=== PATIENT | female | born 1990 | race Caucasian/White ===

== ENCOUNTER 2016-04-09 19:36 | Emergency (ER) | payer OTHER ==
[2016-04-09] MEDS ORDERED: ACETAMINOPHEN 325 MG TABLET (FP) ONE (20:09)
[2016-04-09] MEDS ORDERED: ACETAMINOPHEN 500 MG TABLET (FP) PO ONE (20:12)
[2016-04-09 20:31] VITALS: BP 150/72; PULSE 94; TEMP 98; BMI 33.2
--- NOTE | 2016-04-09 21:20 | PDOC ---
History of Present Illness - History of Present Illness Initial Comments: 04/09/16 22:26 Patient is a 26 year old female with significant medical hx of hydradenitis who is presenting to the ED with tenderness beneath the left axilla for two days. Patient states that her last abscess occurred last year and she had it drained. She does not wear deodorant. The patient denies fever, chills, other past medical history or surgeries. <Atiya Pollock - Last Filed: 04/09/16 22:26> <More Bautista - Last Filed: 04/10/16 01:40> - General Chief Complaint: Wound Stated Complaint: ABSCESS BOIL Time Seen by Provider: 04/09/16 20:31 Past History <Atiya Pollock - Last Filed: 04/09/16 22:26> - Past Medical History Anemia: No Asthma: No Cancer: No Cardiac Disorders: No CVA: No COPD: No CHF: No Dementia: No Diabetes: No GI Disorders: No Disorders: No HTN: No Hypercholesterolemia: No Liver Disease: No Suicide Attempt (Hx): No Seizures: No Thyroid Disease: No - Surgical History Abdominal Surgery: Yes (2 c-sections) - Reproductive History (#): 2 Para: 1 - Psycho/Social/Smoking Cessation Hx Anxiety: No Suicidal Ideation: No Smoking Status: No Smoking History: Never smoked Have you smoked in the past 12 months: No Number of Cigarettes Smoked Daily: 0 Hx Alcohol Use: No Drug/Substance Use Hx: No Substance Use Type: None Hx Substance Use Treatment: No <More Bautista - Last Filed: 04/10/16 01:40> - Past Medical History Allergies/Adverse Reactions: Allergies Allergy/AdvReac Type Severity Reaction Status Date / Time No Known Allergies Allergy Verified 04/09/16 19:50 Home Medications: Ambulatory Orders Ibuprofen [Motrin -] 600 mg PO TID PRN #21 tablet 04/09/16 Sulfamethoxazole/Trimethoprim [Bactrim Ds -] 1 tab PO BID #14 tablet 04/09/16 Review of Systems - Review of Systems Comments:: 04/09/16 22:31 CONSTITUTIONAL: Absent: fever, chills, diaphoresis, generalized weakness, malaise, loss of appetite HEENT: Absent: rhinorrhea, nasal congestion, throat pain, throat swelling, difficulty swallowing, mouth swelling, ear pain, eye pain, visual changes CARDIOVASCULAR: Absent: chest pain, syncope, palpitations, irregular heart rate, lightheadedness , peripheral edema RESPIRATORY: Absent: cough, shortness of breath, dyspnea with exertion, orthopnea, wheezing, stridor, hemoptysis GASTROINTESTINAL: Absent: abdominal pain, abdominal distension, nausea, vomiting, diarrhea, constipation, melena, hematochezia GENITOURINARY: Absent: dysuria, frequency, urgency, hesitancy, hematuria, flank pain, genital pain MUSCULOSKELETAL: Absent: myalgia, arthralgia, joint swelling SKIN: Present: pain beneath left axilla Absent: rash, itching, pallor HEMATOLOGIC/IMMUNOLOGIC: Absent: easy bleeding, easy bruising, lymphadenopathy, frequent infections ENDOCRINE: Absent: unexplained weight gain, unexplained weight loss, heat intolerance, cold intolerance NEUROLOGIC: Absent: headache, focal weakness or paresthesia, dizziness, unsteady gait, seizure, mental status changes, bladder or bowel incontinence. PSYCHIATRIC: Absent: anxiety, depression, suicidal or homicidal ideation, hallucinations <Atiya Pollock - Last Filed: 04/09/16 22:26> *Physical Exam - Vital Signs Last Vital Signs Temp Pulse Resp BP Pulse Ox 98 F 94 H 16 150/72 98 04/09/16 19:51 04/09/16 19:51 04/09/16 19:51 04/09/16 19:51 04/09/16 19:51 - Physical Exam Comments: 04/09/16 22:32 GENERAL: Well developed, well nourished. Awake and alert. No acute distress. HEENT: Normocephalic, atraumatic. PERRLA, EOMI. No conjunctival pallor. Sclera are non- icteric. Moist mucous membranes. Oropharynx is clear. NECK: Supple. Full ROM. No JVD. Carotid pulses 2+ and symmetric, without bruits. No thyromegaly. No lymphadenopathy. CARDIOVASCULAR: Regular rate and rhythm. No murmurs, rubs, or gallops. Distal pulses are 2+ and symmetric. PULMONARY: No evidence of respiratory distress. Lungs clear to auscultation bilaterally. No wheezing, rales or rhonchi. ABDOMINAL: Soft. Non-tender. Non-distended. No rebound or guarding. No organomegaly. Normoactive bowel sounds. MUSCULOSKELETAL: Normal range of motion at all joints. No bony deformities or tenderness. No CVA tenderness. EXTREMITIES: No cyanosis. No clubbing. No edema. No calf tenderness. SKIN: No obvious abscess. Flushy area of 1 cm with exquisite tenderness to left axilla , no fluctuance, no obvious swelling, no redundant erythema, no induration, no streaking. Warm and dry. Normal capillary refill. No rashes. No jaundice. NEUROLOGICAL: Alert, awake, appropriate. Cranial nerves 2-12 intact. Normal speech. Gait is normal without ataxia. PSYCHIATRIC: Cooperative. Good eye contact. Appropriate mood and affect. <Atiya Pollock - Last Filed: 04/09/16 22:26> - Vital Signs Last Vital Signs Temp Pulse Resp BP Pulse Ox 98 F 94 H 16 150/72 98 04/09/16 19:51 04/09/16 19:51 04/09/16 19:51 04/09/16 19:51 04/09/16 19:51 <More Bautista - Last Filed: 04/10/16 01:40> ED Treatment Course - ADDITIONAL ORDERS Additional order review: Laboratory Results 04/09/16 19:57 POC Glucometer [id number] 04/09/16 19:57 POC Glucometer [id number] - Medications Given in the ED: ED Medications Discontinued Medications Generic Name Dose Route Start Last Admin Trade Name Freq PRN Reason Stop Dose Admin Acetaminophen 975 mg 04/09/16 20:12 04/09/16 20:12 Tylenol - PO 04/09/16 20:13 975 mg NOW ONE Administration Trimethoprim/Sulfamethoxazole 1 each 04/09/16 21:21 04/09/16 21:40 Bactrim Ds - PO 04/09/16 21:22 Not Given ONCE ONE <MarisAtiya - Last Filed: 04/09/16 22:26> - ADDITIONAL ORDERS Additional order review: Laboratory Results 04/09/16 19:57 POC Glucometer [id number] 04/09/16 19:57 POC Glucometer [id number] - Medications Given in the ED: ED Medications Discontinued Medications Generic Name Dose Route Start Last Admin Trade Name Freq PRN Reason Stop Dose Admin Acetaminophen 975 mg 04/09/16 20:12 04/09/16 20:12 Tylenol - PO 04/09/16 20:13 975 mg NOW ONE Administration <More Bautista - Last Filed: 04/10/16 01:40> Medical Decision Making - Medical Decision Making 04/10/16 01:37 the pt had a history of hydradenitis and strted to have a painful area under left axilla -on exam there is no area of fluctuance but a very small area of tenderness -I explained that at this time there was no abscess suitable for an incision and drainage -she was placed on antibiotics ad told to return if an area of fluctuance develops or if her pain increases <More Bautista - Last Filed: 04/10/16 01:40> *DC/Admit/Observation/Transfer - Attestations Scribe Attestion: 04/09/16 22:36 Documentation prepared by Atiya Pollock, acting as medical collections for More Bautista MD. 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
[2016-04-09] MEDS ORDERED: SULFAMETHOXAZOLE/TRIMETHOPRIM 800MG/160MG D.S. TABLET PO ONE (21:21)
== END 2016-04-09 22:13 | disposition home or self-care (01) ==
LOC: JER 19:36
DX: L02.412 Cutaneous abscess of left axilla (principal)
CPT/HCPCS: 99281-25

== ENCOUNTER 2016-06-29 16:08 | Emergency (ER) | payer OTHER ==
[2016-06-29 16:18] VITALS: BP 101/62; PULSE 75; TEMP 98.4; BMI 37.8
--- NOTE | 2016-06-29 16:37 | PDOC ---
History of Present Illness - General History Source: Patient Exam Limitations: No Limitations - History of Present Illness Initial Comments: 06/29/16 17:15 The patient is a 26 year old female (), with no significant past medical history, who presents to the emergency department complaining of abdominal pain , nausea, and vomiting for approximately 2 days. The patient reports her last menstrual period was on 06/21/16. However, she reports she experienced spotting as opposed to her typical menstrual bleeding. The patient reports taking an at home test, which was negative. However, she reports she is aware that these are usually ineffective, thus she presents to the emergency department for evaluation of her symptoms. The patient reports she was recently on antibiotics for an abscess in her left upper extremity. However, she reports she has stopped taking the antibiotic out of concern that she may be . The patient denies any diarrhea or constipation. She denies any dysuria, hematuria, frequency, or urgency. She denies any fever, chills, cough, headache , or dizziness. Allergies: None reported. Past Surgical History: (X2) Social History: Non-smoker. Denies alcohol or drug use. PCP: Dr. Erickson <Edward Saenz - Last Filed: 06/29/16 17:15> <Christi Phelps - Last Filed: 06/29/16 19:44> <Julia Reynoso - Last Filed: 07/02/16 07:50> - General Chief Complaint: Pain, Acute Stated Complaint: ABS PAIN Time Seen by Provider: 06/29/16 16:35 Past History <Edward Saenz - Last Filed: 06/29/16 17:15> <Christi Phelps - Last Filed: 06/29/16 19:44> - Past Medical History Anemia: No Asthma: No Cancer: No Cardiac Disorders: No CVA: No COPD: No CHF: No Dementia: No Diabetes: No GI Disorders: No Disorders: No HTN: No Hypercholesterolemia: No Liver Disease: No Suicide Attempt (Hx): No Seizures: No Thyroid Disease: No - Surgical History Abdominal Surgery: Yes (2 c-sections) - Reproductive History (#): 2 Para: 1 - Psycho/Social/Smoking Cessation Hx Anxiety: No Suicidal Ideation: No Smoking Status: No Smoking History: Never smoked Have you smoked in the past 12 months: No Number of Cigarettes Smoked Daily: 0 Information on smoking cessation initiated: No Hx Alcohol Use: No Drug/Substance Use Hx: No Substance Use Type: None Hx Substance Use Treatment: No <Julia Reynoso - Last Filed: 07/02/16 07:50> - Past Medical History Allergies/Adverse Reactions: Allergies Allergy/AdvReac Type Severity Reaction Status Date / Time No Known Allergies Allergy Verified 06/29/16 18:17 Home Medications: Ambulatory Orders NK [No Known Home Medication] 06/29/16 Review of Systems - Review of Systems Able to Perform ROS?: Yes Comments:: 06/29/16 17:16 GENERAL/CONSTITUTIONAL: No fever or chills. No weakness. HEAD, EYES, EARS, NOSE AND THROAT: No change in vision. No ear pain or discharge. No sore throat. CARDIOVASCULAR: No chest pain or shortness of breath. RESPIRATORY: No cough, wheezing, or hemoptysis. GASTROINTESTINAL: Yes: +abdominal pain, +nausea, +vomiting. No constipation. GENITOURINARY: No dysuria, frequency, or change in urination. MUSCULOSKELETAL: No joint or muscle swelling or pain. No neck or back pain. SKIN: No rash NEUROLOGIC: No headache, vertigo, loss of consciousness, or change in strength/ sensation. ENDOCRINE: No increased thirst. No abnormal weight change. HEMATOLOGIC/LYMPHATIC: No anemia, easy bleeding, or history of blood clots. ALLERGIC/IMMUNOLOGIC: No hives or skin allergy. <Edward Saenz - Last Filed: 06/29/16 17:15> *Physical Exam - Vital Signs Last Vital Signs Temp Pulse Resp BP Pulse Ox 98.4 F 75 20 101/62 99 06/29/16 16:13 06/29/16 16:13 06/29/16 16:13 06/29/16 16:13 06/29/16 16:13 - Physical Exam Comments: 06/29/16 17:16 GENERAL: Awake, alert, and fully oriented, in no acute distress HEAD: No signs of trauma EYES: PERRLA, EOMI, sclera anicteric, conjunctiva clear ENT: Auricles normal inspection, hearing grossly normal, nares patent, oropharynx clear without exudates. Moist mucosa NECK: Normal ROM, supple, no lymphadenopathy, JVD, or masses LUNGS: Breath sounds equal, clear to auscultation bilaterally. No wheezes, and no crackles HEART: Regular rate and rhythm, normal S1 and S2, no murmurs, rubs or gallops ABDOMEN: Soft, nontender, normoactive bowel sounds. No guarding, no rebound. No masses EXTREMITIES: Normal range of motion, no edema. No clubbing or cyanosis. No cords, erythema, or tenderness NEUROLOGICAL: Cranial nerves II through XII grossly intact. Normal speech, normal gait SKIN: Warm, Dry, normal turgor, no rashes or lesions noted. <Edward Saenz - Last Filed: 06/29/16 17:15> - Vital Signs Last Vital Signs Temp Pulse Resp BP Pulse Ox 98.4 F 75 20 101/62 99 06/29/16 16:13 06/29/16 16:13 06/29/16 16:13 06/29/16 16:13 06/29/16 16:13 <Christi Phelps - Last Filed: 06/29/16 19:44> - Vital Signs Last Vital Signs Temp Pulse Resp BP Pulse Ox 98.4 F 75 20 101/62 99 06/29/16 16:13 06/29/16 16:13 06/29/16 16:13 06/29/16 16:13 06/29/16 16:13 <Julia Reynoso - Last Filed: 07/02/16 07:50> ED Treatment Course - LABORATORY CBC & Chemistry Diagram: 06/29/16 17:05 06/29/16 17:05 - ADDITIONAL ORDERS Additional order review: Laboratory Results 06/29/16 06/29/16 06/29/16 17:05 17:05 17:05 Sodium 139 Potassium 4.4 Chloride 102 Carbon Dioxide 29 D Anion Gap 8 BUN 9 D Creatinine 0.7 Creat Clearance w eGFR > 60 Random Glucose 76 Calcium 9.4 Total Bilirubin 0.3 D AST 19 D ALT 36 D Alkaline Phosphatase 66 Total Protein 7.6 Albumin 4.1 Lipase 151 Serum , Qual Negative Urine Color Straw Urine Appearance Clear Urine pH 8.0 D Urine Protein Negative Urine Glucose (UA) Negative Urine Ketones Negative Urine Blood Negative Urine Nitrite Negative Urine Bilirubin Negative Urine Urobilinogen Negative Ur Leukocyte Esterase 2+ H Urine RBC 2 Urine WBC 8 Ur Epithelial Cells Few Urine HCG, Qual Negative 06/29/16 17:05 RBC 4.64 MCV 88.3 MCHC 33.0 RDW 14.4 MPV 8.6 Neutrophils % 57.4 Lymphocytes % 34.5 Monocytes % 6.1 Eosinophils % 1.7 Basophils % 0.3 - Medications Given in the ED: ED Medications Discontinued Medications Generic Name Dose Route Start Last Admin Trade Name Nano PRN Reason Stop Dose Admin Sodium Chloride 1,000 mls @ 1,000 mls/hr 06/29/16 17:01 06/29/16 18:11 Normal Saline - IV 06/29/16 18:00 Not Given ASDIR STA Ondansetron HCl 4 mg 06/29/16 17:01 06/29/16 18:11 Zofran Injection IVPUSH 06/29/16 17:02 Not Given ONCE ONE <Christi Phelps - Last Filed: 06/29/16 19:44> - LABORATORY CBC & Chemistry Diagram: 06/29/16 17:05 06/29/16 17:05 <Julia Reynoso - Last Filed: 07/02/16 07:50> Medical Decision Making - Medical Decision Making Pt endorsed to Dr. Phelps at 7pm shift change. Awaiting serum preg. She was difficult for IV access, butterflied for labs. She has been tolerating PO in the ED, do <Julia Reynoso - Last Filed: 07/02/16 07:50> *DC/Admit/Observation/Transfer - Attestations Scribe Attestion: 06/29/16 17:17 Documentation prepared by Edward Saenz, acting as emergency medical tech for Julia Reynoso MD. <Edward Saenz - Last Filed: 06/29/16 17:15> - Discharge Dispostion Admit: No <Christi Phelps - Last Filed: 06/29/16 19:44> <Julia Reynoso - Last Filed: 07/02/16 07:50> Diagnosis at time of Disposition: Abdominal pain - Discharge Dispostion Disposition: HOME Condition at time of disposition: Stable - Referrals Referrals: Maisha Erickson MD [Primary Care Provider] - - Patient Instructions Printed Discharge Instructions: DI for Abdominal Pain-Adult
[2016-06-29] MEDS ORDERED: SODIUM CHLORIDE 1,000 ML IV STA (17:01)
[2016-06-29] MEDS ORDERED: ONDANSETRON 4 MG/2 ML VIAL IVPUSH ONE (17:01)
[2016-06-29] MEDS ORDERED: ONDANSETRON 4 MG/2 ML VIAL ONE (17:14)
[2016-06-29 17:34] LABS: URINE APPEARANCE CLEAR; URINE BILIRUBIN NEGATIVE (NEGATIVE); URINE BLOOD NEGATIVE (NEGATIVE); URINE COLOR STRAW; URINE GLUCOSE (UA) NEGATIVE (NEGATIVE); URINE KETONE NEGATIVE (NEGATIVE); URINE NITRITE NEGATIVE (NEGATIVE); URINE PROTEIN NEGATIVE (NEGATIVE); URINE UROBILINOGEN NEGATIVE E.U./dl (0.2-1.0)
[2016-06-29 17:37] LABS: URINE LEUK ESTERASE 2+ (NEGATIVE)
[2016-06-29 17:38] LABS: URINE RBC 2 /hpf (0-3); URINE WBC 8 /hpf (3-5)
[2016-06-29 18:58] LABS: BASOPHIL 0.3 % (0-2.0); EOSINOPHIL 1.7 % (0-4.5); MCH 29.1 pg (25.7-33.7); MEAN CELL VOLUME 88.3 fl (80-96); MEAN PLT VOLUME 8.6 fl (7.5-11.1); NEUTROPHILS 57.4 % (42.8-82.8); PLATELET COUNT 385 K/MM3 (134-434); RDW 14.4 % (11.6-15.6); WHITE BLOOD COUNT 8.7 K/mm3 (4.0-10.0)
[2016-06-29 19:20] LABS: ALBUMIN 4.1 g/dl (3.4-5.0); ALK PHOS 66 U/L (45-117); ANION GAP 8 (8-16); BILIRUBIN,TOTAL 0.3 mg/dL (0.2-1.0); CALCIUM 9.4 mg/dL (8.5-10.1); CO2 29 mmol/L (21-32); CREATININE 0.7 mg/dL (0.55-1.02); GLUCOSE,RANDOM 76 mg/dL (74-106); SGOT/AST 19 U/L (15-37); SGPT/ALT 36 U/L (12-78); TOT PROT 7.6 g/dl (6.4-8.2)
== END 2016-06-29 19:57 | disposition home or self-care (01) ==
LOC: JER 16:08
DX: R10.84 Generalized abdominal pain (principal)
CPT/HCPCS: 36415; 80053; 81003; 81015; 83690; 84703; 85025; 99282-25

== ENCOUNTER 2016-09-26 02:36 | Emergency (ER) | payer OTHER ==
--- NOTE | 2016-09-26 03:01 | PDOC ---
History of Present Illness - General Chief Complaint: Pain Stated Complaint: SHOULDER/CHEST PAIN Time Seen by Provider: 09/26/16 03:00 Past History - Past Medical History Allergies/Adverse Reactions: Allergies Allergy/AdvReac Type Severity Reaction Status Date / Time No Known Allergies Allergy Verified 06/29/16 18:17 Home Medications: Ambulatory Orders NK [No Known Home Medication] 06/29/16 Anemia: No Asthma: No Cancer: No Cardiac Disorders: No CVA: No COPD: No CHF: No Dementia: No Diabetes: No GI Disorders: No Disorders: No HTN: No Hypercholesterolemia: No Liver Disease: No Suicide Attempt (Hx): No Seizures: No Thyroid Disease: No - Surgical History Abdominal Surgery: Yes (2 c-sections) - Reproductive History (#): 2 Para: 1 - Psycho/Social/Smoking Cessation Hx Anxiety: No Suicidal Ideation: No Smoking Status: No Smoking History: Never smoked Have you smoked in the past 12 months: No Number of Cigarettes Smoked Daily: 0 Hx Alcohol Use: No Drug/Substance Use Hx: No Substance Use Type: None Hx Substance Use Treatment: No
--- NOTE | 2016-09-26 03:05 | PDOC ---
Attending Attestation - Resident Resident Name: Cabrera Ferrer - ED Attending Attestation I have performed the following: I have examined & evaluated the patient, The case was reviewed & discussed with the resident, I agree w/resident's findings & plan, Exceptions are as noted <Tenzin Butler - Last Filed: 09/26/16 03:04> - HPI HPI: 09/26/16 03:08 The patient is a 26 year old female with no pmhx who presents to the ED with chest pain. Patient states that she was smoking hookah and upon taking a deep breath she felt a sharp chest pain. She notes that the pain is now constant. No fever or chills. - Physicial Exam PE: 09/26/16 03:09 GENERAL: Well developed, well nourished. Awake and alert. In no acute distress. HEENT: Normocephalic, atraumatic. PERRLA, EOMI. No conjunctival pallor. Sclerae are non -icteric. Moist mucous membranes. Oropharynx is clear. NECK: Supple. Full ROM. No JVD. Carotid pulses 2+ and symmetric, without bruits. No thyromegaly. No lymphadenopathy. CARDIOVASCULAR: (+)Tachycardic. (+)Sternal chest wall tenderness upon palpation. No murmurs, rubs, or gallops. Distal pulses are 2+ and symmetric. PULMONARY: No evidence of respiratory distress. Lungs clear to auscultation bilaterally. No wheezing, rales or rhonchi. ABDOMINAL: (+)Obese. Soft. Non-tender. Non-distended. No rebound or guarding. No organomegaly. Normoactive bowel sounds. MUSCULOSKELETAL Normal range of motion at all joints. No bony deformities or tenderness. No CVA tenderness. EXTREMITIES: No cyanosis. No clubbing. No edema. No calf tenderness. SKIN: Warm and dry. Normal capillary refill. No rashes. No jaundice. NEUROLOGICAL: Alert, awake, appropriate. Cranial nerves 2-12 intact. PSYCHIATRIC: Cooperative. Good eye contact. Appropriate mood and affect. - Medical Decision Making 09/26/16 03:10 26 yo F with no pmhx who presents to the ED with chest pain after smoking hookah. Patient states that she developed chest pain upon inhalation. She notes that the chest pain is now constant. She denies any SOB. Plan: EKG UA Chest CT Documentation prepared by ODALIS Anne, acting as medical appointment scheduler for Tenzin Butler DO. 09/26/16 04:51 THIS IS A PRELIMINARY REPORT FROM [facility] EXAM: CHEST CT WITHOUT CONTRAST HISTORY:Pneumothorax FINDINGS:Heart:: Normal Pericardium: not thickened Thoracic aorta and great vessels: Normal Superior vena cava and inferior vena cava: Normal Pulmonary arteries: Normal in caliber Thoracic esophagus: Normal Mediastinal lymph nodes : Normal Central airways: Normal Lungs: clear without focal consolidation Pleural spaces: Normal with no pneumothorax or pleural fluid Chest wall: Normal Superior abdomen: Normal IMPRESSION: No pneumothorax, normal chest THIS DOCUMENT HAS BEEN ELECTRONICALLY SIGNED Stewart Rivera MD <Helga Kay - Last Filed: 09/26/16 04:51> Heart Score/ECG Review #1 09/26/16 03:13 NS at 82 bpm <Helga Kay - Last Filed: 09/26/16 04:51>
[2016-09-26 03:06] VITALS: BP 124/79; PULSE 86; TEMP 97.5; BMI 37.1
--- NOTE | 2016-09-26 03:18 | PDOC ---
History of Present Illness - General Chief Complaint: Pain Stated Complaint: SHOULDER/CHEST PAIN Time Seen by Provider: 09/26/16 03:00 History Source: Patient Exam Limitations: No Limitations - History of Present Illness Initial Comments: 09/26/16 04:41 26 years old obese female present to the ED after complaining of chest sudden onset chest pain as she was taking a big breath smoking hookah 30min earlier. Patient states that each breath is painful during inspiration now. No headache, diaphoresis, cough dizziness or fever. Denies similar events in the past. 09/26/16 04:47 Past History - Past Medical History Allergies/Adverse Reactions: Allergies Allergy/AdvReac Type Severity Reaction Status Date / Time No Known Allergies Allergy Verified 06/29/16 18:17 Home Medications: Ambulatory Orders NK [No Known Home Medication] 06/29/16 Anemia: No Asthma: No Cancer: No Cardiac Disorders: No CVA: No COPD: No CHF: No DVT: No Dementia: No Diabetes: No Dialysis: No GI Disorders: No Disorders: No HTN: No Hypercholesterolemia: No HIV: No Kidney Stones: No Liver Disease: No Psychiatric Problems: No Suicide Attempt (Hx): No Seizures: No Thyroid Disease: No Lung CA: No - Surgical History Abdominal Surgery: Yes (2 c-sections) - Reproductive History (#): 2 Para: 1 - Psycho/Social/Smoking Cessation Hx Anxiety: No Suicidal Ideation: No Smoking Status: No Smoking History: Never smoked Have you smoked in the past 12 months: No Number of Cigarettes Smoked Daily: 0 Information on smoking cessation initiated: No Hx Alcohol Use: No Drug/Substance Use Hx: No Substance Use Type: None Hx Substance Use Treatment: No Review of Systems - Review of Systems Constitutional: No: Night Sweats, Unintentional Wgt. Loss HEENTM: No: Symptoms Reported Respiratory: Yes: See HPI, Shortness of Breath, Other. No: Cough, Stridor, Wheezing, Productive cough Cardiac (ROS): Yes: Chest Pain. No: Edema, Irregular Heart Rate, Lightheadedness, Palpitations, Syncope, Chest Tightness ABD/GI: No: Symptoms Reported : No: Symptoms Reported *Physical Exam - Vital Signs Last Vital Signs Temp Pulse Resp BP Pulse Ox 97.5 F L 86 18 124/79 99 09/26/16 02:53 09/26/16 02:53 09/26/16 02:53 09/26/16 02:53 09/26/16 02:53 - Physical Exam General Appearance: Yes: Nourished, Mild Distress, Obese HEENT: positive: EOMI Neck: positive: Trachea midline Respiratory/Chest: positive: Chest Tender (on palpation at T4 level), Normal Breath Sounds. negative: Respiratory Distress, Accessory Muscle Use, Labored Respiration, Rapid RR, Decreased Breath Sounds, Paradoxal Breathing, Crackles, Rales, Rhonchi, Stridor Cardiovascular: positive: Regular Rhythm, Regular Rate, S1, S2 Gastrointestinal/Abdominal: positive: Normal Bowel Sounds, Soft. negative: Tender, Organomegaly Extremity: positive: Normal Capillary Refill Medical Decision Making - Medical Decision Making 09/26/16 04:51 26F presenting with midline chest pain that spontaneously appeared while smoking hookah. r/o spontaneous pneumothorax: chest ct negative. 09/26/16 04:55 Patient counseled on risks for spontaneous pneumothorax *DC/Admit/Observation/Transfer Diagnosis at time of Disposition: Costochondral chest pain - Discharge Dispostion Condition at time of disposition: Improved Admit: No - Referrals Referrals: Maisha Erickson MD [Primary Care Provider] - - Patient Instructions Printed Discharge Instructions: DI for Costochondritis
--- NOTE | 2016-09-26 10:43 | EKG ---
Test Reason : Blood Pressure : / mmHG Vent. Rate : 082 BPM Atrial Rate : 082 BPM P-R Int : 144 ms QRS Dur : 080 ms QT Int : 352 ms P-R-T Axes : 012 049 008 degrees QTc Int : 411 ms NORMAL SINUS RHYTHM NORMAL ECG WHEN COMPARED WITH ECG OF 06-OCT-2015 01:17, FUSION COMPLEXES ARE NO LONGER PRESENT Confirmed by ABEL GARCIA MD ([id number]) on 09/26/2016 10:43:16 AM Referred By: Confirmed By:ABEL GARCIA MD
== END 2016-09-26 05:11 | disposition home or self-care (01) ==
LOC: JER 02:36
DX: M94.0 Chondrocostal junction syndrome [Tietze] (principal); E66.9 Obesity, unspecified; Z68.37 Body mass index [BMI] 37.0-37.9, adult; F17.210 Nicotine dependence, cigarettes, uncomplicated
CPT/HCPCS: 71250-TC; 84703; 93005; 93010; 99283-25

== ENCOUNTER 2017-03-07 11:40 | Emergency (ER) | payer OTHER ==
[2017-03-07 12:02] VITALS: BP 137/74; PULSE 98; TEMP 99; BMI 35.5
--- NOTE | 2017-03-07 12:41 | PDOC ---
History of Present Illness - General Chief Complaint: Urinary Problem Stated Complaint: BACK PAIN Time Seen by Provider: 03/07/17 12:12 - History of Present Illness Initial Comments: 03/07/17 12:33 CHIEF COMPLAINT: urinary problem HISTORY OF PRESENT ILLNESS: 27 yo F with hx of UTI presents to fast track with pain with urination, urinary frequency, R flank pain x 3 days and 2 episodes of vomiting yesterday. Patient denies any fever, chills, or diarrhea. PAST MEDICAL HISTORY: Denies past medical history FAMILY HISTORY: Denies SOCIAL HISTORY: Denies tobacco, alcohol, illicit drug use. SURGICAL HISTORY: Denies ALLERGIES: No known drug allergies REVIEW OF SYSTEMS General/Constitutional: Denies fever or chills. Denies weakness, weight change. HEENT: Denies change in vision. Denies ear pain or discharge. Denies sore throat. Cardiovascular: Denies chest pain or shortness of breath. Respiratory: Denies cough, wheezing, or hemoptysis. Gastrointestinal: 2 episodes of vomiting. Denies diarrhea. Genitourinary: Dysuria, urinary frequency. Musculoskeletal: Denies joint or muscle swelling or pain. Denies neck or back pain. Skin: Denies rash. Neurologic: Denies headache. PHYSICAL EXAM General Appearance: Well-appearing, appropriately dressed. No apparent distress. HEENT: EOMI, PERRLA No conjunctival pallor. No photophobia, scleral icterus. Respiratory/Chest: Lungs CTAB. Cardiovascular: RRR. S1, S2. Gastrointestinal/Abdominal: Normal bowel sounds. Abdomen soft, non-distended. No tenderness or rebound tenderness. No organomegaly, pulsatile mass, guarding , hernia, hepatomegaly, splenomegaly. Musculoskeletal/Extremities: Normal inspection. FROM of all extremities, normal capillary refill. Pelvis Stable. No CVA tenderness. No tenderness to extremities, pedal edema, swelling, erythema or deformity. Integumentary: Appropriate color, dry, warm. No cyanosis, erythema, jaundice or rash Neurologic: business integration manager II-XII intact. Fully oriented, alert. Appropriate mood/affect. Motor strength 5/5. No appreciable EOM palsy, facial droop or sensory deficit. Past History - Past Medical History Allergies/Adverse Reactions: Allergies Allergy/AdvReac Type Severity Reaction Status Date / Time No Known Allergies Allergy Verified 03/07/17 11:58 Home Medications: Ambulatory Orders Nitrofurantoin Monohyd/M-Cryst [Macrobid -] 100 mg PO BID #20 capsule 03/07/17 Ondansetron HCl [Zofran] 4 mg PO TID PRN #9 tablet 03/07/17 Anemia: No Asthma: No Cancer: No Cardiac Disorders: No CVA: No COPD: No CHF: No DVT: No Dementia: No Diabetes: No Dialysis: No GI Disorders: No Disorders: No HTN: No Hypercholesterolemia: No Kidney Stones: No Liver Disease: No Psychiatric Problems: No Seizures: No Thyroid Disease: No Lung CA: No Other medical history: DENIES. - Surgical History Abdominal Surgery: Yes (2 c-sections) - Reproductive History (#): 2 Para: 1 - Suicide/Smoking/Psychosocial Hx Smoking Status: No Smoking History: Never smoked Have you smoked in the past 12 months: No Number of Cigarettes Smoked Daily: 0 Hx Alcohol Use: No Drug/Substance Use Hx: No Substance Use Type: None Hx Substance Use Treatment: No *Physical Exam - Vital Signs Last Vital Signs Temp Pulse Resp BP Pulse Ox 99 F 98 H 19 137/74 99 03/07/17 11:59 03/07/17 11:59 03/07/17 11:59 03/07/17 11:59 03/07/17 11:59 Medical Decision Making - Medical Decision Making 03/07/17 12:41 27 yo F with hx of UTI presents to fast track with pain with urination, urinary frequency, R flank pain x 3 days and 2 episodes of vomiting yesterday. Per chart history patient had hx of UTI susceptible to bactrim and macrobid. -UA, UCx, Upreg 03/07/17 12:48 3+ leuks to urine will treat for UTI 03/07/17 13:00 Upon discharge, patient reports that she was seen in the DR "yesterday" and they told me "that I need an ultrasound." Discussed with patient that she does not need an ultrasound since we have source of her flank pain and that she has been prescribed antibiotics to treat the infection. Patient insists that she needs to be admitted due to her urinary discomfort and states that "you are not doing anything, I know I need an ultrasound." Patient requests to see "a doctor." Will order ultrasound to r/o any hydro or stones. 03/07/17 14:12 Ultrasound negative. Advised patient to take medication as prescribed and follow up with PMD if symptoms persist. Advised patient of signs and symptoms for return to ED. Patient verbalized understanding and agrees to plan. *DC/Admit/Observation/Transfer Diagnosis at time of Disposition: UTI (urinary tract infection) Qualifiers: Urinary tract infection type: site unspecified Hematuria presence: without hematuria Qualified Code(s): N39.0 - Urinary tract infection, site not specified - Discharge Dispostion Disposition: HOME Condition at time of disposition: Stable Admit: No - Prescriptions Prescriptions: Nitrofurantoin Monohyd/M-Cryst [Macrobid -] 100 mg PO BID #20 capsule Ondansetron HCl [Zofran] 4 mg PO TID PRN #9 tablet PRN Reason: Nausea And/Or Vomiting - Referrals Referrals: Maisha Erickson MD [Primary Care Provider] - - Patient Instructions Printed Discharge Instructions: DI for Urinary Tract Infection (UTI) Additional Instructions: Please take medications as prescribed. Follow up with your Dr. Erickson if symptoms persist past 3 days. If you develop any fever, chills, persistent vomiting unrelieved by the medication, persistent diarrhea, or any new or worsening symptoms, please return to the ER immediately. - Post Discharge Activity
[2017-03-07 12:43] LABS: HCG,QUALITATIVE URINE NEGATIVE; URINE APPEARANCE SLCLOUDY; URINE BILIRUBIN NEGATIVE (NEGATIVE); URINE BLOOD NEGATIVE (NEGATIVE); URINE COLOR LTYELLOW; URINE GLUCOSE (UA) NEGATIVE (NEGATIVE); URINE KETONE NEGATIVE (NEGATIVE); URINE NITRITE NEGATIVE (NEGATIVE); URINE PROTEIN NEGATIVE (NEGATIVE); URINE UROBILINOGEN NEGATIVE mg/dL (0.2-1.0)
[2017-03-07 12:45] LABS: URINE LEUK ESTERASE 3+ (NEGATIVE)
[2017-03-07 13:09] LABS: EPI CELLS RARE /HPF (FEW); URINE MUCUS RARE
[2017-03-07] MEDS ORDERED: ONDANSETRON *ODT* 4 MG TABLET SL ONE (14:13)
[2017-03-07] MEDS ORDERED: ONDANSETRON *ODT* 4 MG TABLET ONE (14:19)
== END 2017-03-07 14:34 | disposition home or self-care (01) ==
LOC: JERFT 11:40
DX: N39.0 Urinary tract infection, site not specified (principal); B95.7 Other staphylococcus as the cause of diseases classified elsewhere
CPT/HCPCS: 76775-TC; 81003; 81015; 84703; 87086; 87186; 99281-25

== ENCOUNTER 2018-04-04 18:10 | Emergency (ER) | payer OTHER ==
[2018-04-04 18:14] VITALS: BP 116/71; PULSE 84; TEMP 98.1; BMI 38.7
[2018-04-04] MEDS ORDERED: RANITIDINE HCL 150 MG TABLET (FP) PO ONE (18:34)
--- NOTE | 2018-04-04 18:35 | PDOC ---
History of Present Illness - General Chief Complaint: Pain Stated Complaint: FIVE WKS /ABD PAIN History Source: Patient - History of Present Illness Timing/Duration: reports: other Past History - Past Medical History Allergies/Adverse Reactions: Allergies Allergy/AdvReac Type Severity Reaction Status Date / Time No Known Allergies Allergy Verified 04/04/18 18:14 Home Medications: Ambulatory Orders Nitrofurantoin Monohyd/M-Cryst [Macrobid -] 100 mg PO BID #20 capsule 03/07/17 Ondansetron HCl [Zofran] 4 mg PO TID PRN #9 tablet 03/07/17 Cephalexin Monohydrate [Keflex -] 500 mg PO BID #14 capsule 04/04/18 Docusate Sodium [Colace -] 100 mg PO DAILY #7 capsule 04/04/18 metroNIDAZOLE 0.75% VAG. GEL [Metrogel 0.75% *Vaginal Gel* -] 1 applic VG BID # 1 tube 04/04/18 Anemia: No Asthma: No Cancer: No Cardiac Disorders: No CVA: No COPD: No CHF: No DVT: No Dementia: No Diabetes: No Dialysis: No GI Disorders: No Disorders: No HTN: No Hypercholesterolemia: No Kidney Stones: No Liver Disease: No Psychiatric Problems: No Seizures: No Thyroid Disease: No Lung CA: No - Surgical History Abdominal Surgery: Yes (2 c-sections) - Reproductive History (#): 2 Para: 1 - Suicide/Smoking/Psychosocial Hx Smoking Status: No Smoking History: Never smoked Have you smoked in the past 12 months: No Number of Cigarettes Smoked Daily: 0 Hx Alcohol Use: No Drug/Substance Use Hx: No Substance Use Type: None Hx Substance Use Treatment: No Review of Systems - Review of Systems Constitutional: No: Chills, Fever Respiratory: No: Shortness of Breath Cardiac (ROS): No: Chest Pain, Lightheadedness ABD/GI: No: Blood Streaked Bowels, Constipated, Diarrhea, Nausea, Vomiting, Tarry Stools : Yes: Dysuria, Discharge. No: Flank Pain, Hematuria *Physical Exam - Vital Signs Last Vital Signs Temp Pulse Resp BP Pulse Ox 98.1 F 84 18 116/71 99 04/04/18 18:11 04/04/18 18:11 04/04/18 18:11 04/04/18 18:11 04/04/18 18:11 - Physical Exam General Appearance: Yes: Appropriately Dressed. No: Apparent Distress HEENT: positive: Normal Voice Neck: positive: Supple Respiratory/Chest: positive: Lungs Clear, Normal Breath Sounds. negative: Respiratory Distress Cardiovascular: positive: Regular Rate, S1, S2 Female Pelvic Exam: positive: discharge, other (pt reports sig discomfort throughput entire pelvic exam, moderate amount of light yellow discharge w/ foul odor, no lesions). negative: lesions, vaginal bleeding Gastrointestinal/Abdominal: positive: Normal Bowel Sounds, Tender (to epigastrium and L suprapubic area), Soft. negative: Distended, Guarding, Rebound Musculoskeletal: negative: CVA Tenderness Integumentary: positive: Dry, Warm Neurologic: positive: Fully Oriented, Alert, Normal Mood/Affect Moderate Sedation - Procedure Monitoring Vital Signs: Procedure Monitoring Vital Signs Temperature 98.1 F 04/04/18 18:11 Pulse Rate 84 04/04/18 18:11 Respiratory Rate 18 04/04/18 18:11 Blood Pressure 116/71 04/04/18 18:11 O2 Sat by Pulse Oximetry (%) 99 04/04/18 18:11 ED Treatment Course - LABORATORY CBC & Chemistry Diagram: 04/04/18 18:50 04/04/18 18:50 Medical Decision Making - Medical Decision Making 04/04/18 18:26 28 yo F, ,~5 weeks by dates, p/w foul smelling vaginal discharge since yesterday. Also reports vaginal itch and dysuria. No hematuria, flank pain, nausea, vomiting, fever or chills. Last time sexually active w/ long time partner was 1 month ago per pt. Also complaining of epigastric pain x several days with no alleviating or exacerbating factors. Denies vaginal bleeding. Patient reports that she does not plan on carrying fetus to term and is planning on making a AGRICULTURAL TECHNICAL OFFICER appointment to discuss her options See exam Vaginal discharge in ?BV (given foul odor) vs franklin vs STD, consider PID as sig discomfort throughout entire pelvic exam -STD cx -genital cx -UA -labs -US Epigastric pain Sig ttp to epigastrium Possible gastritis/GERD, unlikely biliary colic, pancreatitis or uti/pyelo -zantac/reasess -labs -US 04/06/18 09:14 *DC/Admit/Observation/Transfer Diagnosis at time of Disposition: UTI (urinary tract infection), Bacterial vaginosis - Discharge Dispostion Disposition: HOME Condition at time of disposition: Stable - Prescriptions Prescriptions: Cephalexin Monohydrate [Keflex -] 500 mg PO BID #14 capsule Docusate Sodium [Colace -] 100 mg PO DAILY #7 capsule metroNIDAZOLE 0.75% VAG. GEL [Metrogel 0.75% *Vaginal Gel* -] 1 applic VG BID # 1 tube - Referrals Referrals: Elvin Jacques MD [Staff Physician] - - Patient Instructions Printed Discharge Instructions: DI for Urinary Tract Infection (UTI) Additional Instructions: You are ; you also have a urinary tract infection Take the antibiotics twice a day for 7 days You can also use the metrogel twice a day for vaginal itching You will receive a phone call regarding your STD testing Follow [facility] Return to the ED for any new or worsening symptoms - Post Discharge Activity
[2018-04-04] MEDS ORDERED: RANITIDINE HCL 150 MG TABLET (FP) ONE (18:39)
[2018-04-04 18:58] LABS: BASO % 0.2 % (0-2.0); EOS % 0.8 % (0-4.5); HEMOGLOBIN 12.7 GM/dL (10.7-15.3); MCH 31.3 pg (25.7-33.7); MCHC 34.2 g/dl (32.0-36.0); MEAN CELL VOLUME 91.4 fl (80-96); MEAN PLT VOLUME 9.2 fl (7.5-11.1); MONO % 5.2 % (3.8-10.2); NEUT % 69.8 % (42.8-82.8); PLATELET COUNT 332 K/MM3 (134-434); RBC 4.05 M/mm3 (3.60-5.2); RDW 14.4 % (11.6-15.6); WHITE BLOOD COUNT 11.7 K/mm3 (4.0-10.0)
[2018-04-04 19:06] LABS: URINE APPEARANCE SLCLOUDY; URINE BILIRUBIN NEGATIVE (<2.0 mg/dL); URINE COLOR STRAW; URINE GLUCOSE (UA) NEGATIVE (NEGATIVE); URINE KETONE NEGATIVE (NEGATIVE); URINE LEUK ESTERASE 3+ (NEGATIVE); URINE NITRITE NEGATIVE (NEGATIVE); URINE PROTEIN NEGATIVE (NEGATIVE); URINE UROBILINOGEN NEGATIVE mg/dL (0.2-1.0)
[2018-04-04 19:12] LABS: EPI CELLS RARE /HPF (FEW)
--- NOTE | 2018-04-04 19:16 | PDOC ---
*Physical Exam - Vital Signs Last Vital Signs Temp Pulse Resp BP Pulse Ox 98.1 F 84 18 116/71 99 04/04/18 18:11 04/04/18 18:11 04/04/18 18:11 04/04/18 18:11 04/04/18 18:11 - Physical Exam General Appearance: Yes: Nourished, Appropriately Dressed. No: Apparent Distress Gastrointestinal/Abdominal: positive: Normal Bowel Sounds, Flat, Soft. negative : Tender, Pulsatile Mass, Guarding, Rebound, Tenderness Neurologic: positive: Fully Oriented, Alert, Normal Mood/Affect, Normal Response ED Treatment Course - LABORATORY CBC & Chemistry Diagram: 04/04/18 18:50 04/04/18 18:50 - ADDITIONAL ORDERS Additional order review: Laboratory Results 04/04/18 18:47 Urine Color Straw Urine Appearance Slcloudy Urine pH 6.0 Ur Specific [place] 1.006 L Urine Protein Negative Urine Glucose (UA) Negative Urine Ketones Negative Urine Blood Negative Urine Nitrite Negative Urine Bilirubin Negative Urine Urobilinogen Negative Ur Leukocyte Esterase 3+ H 04/04/18 18:50 RBC 4.05 MCV 91.4 MCHC 34.2 RDW 14.4 MPV 9.2 Neutrophils % 69.8 Lymphocytes % 24.0 D Monocytes % 5.2 Eosinophils % 0.8 Basophils % 0.2 - Medications Given in the ED: ED Medications Discontinued Medications Generic Name Dose Route Start Last Admin Trade Name Nano PRN Reason Stop Dose Admin Ranitidine HCl 150 mg 04/04/18 18:34 04/04/18 18:41 Zantac - PO 04/04/18 18:35 150 mg ONCE ONE Administration Medical Decision Making - Medical Decision Making 04/04/18 19:15 Sign out received from SUSAN Denis. Pt presents with vaginal discomfort, pt approximately 5 weeks . Pending labs, US. Re-evaluate. 04/04/18 21:03 US RUQ and transvaginal resulted RUQ: No acute findings Transvaginal: 7 week , IUP, heart rate 153 Pt with UTI on labs; will treat with abx Given sign out of foul smelling discharge, will prescribe metrogel Pt does not want STD prophylaxis at this time. States that she will return to the ED if she needs treatment Pt following [facility] with [facility]. [place] home I discussed the physical exam findings, ancillary test results and final diagnoses with the patient. I answered all of the patient's questions. The patient was satisfied with the care received and felt comfortable with the discharge plan and treatment plan. The Patient agrees to follow up with the primary care physician/specialist within 24-72 hours. Return precautions were given. *DC/Admit/Observation/Transfer Diagnosis at time of Disposition: Bacterial vaginosis UTI (urinary tract infection) Qualifiers: Urinary tract infection type: acute cystitis Hematuria presence: with hematuria Qualified Code(s): N30.01 - Acute cystitis with hematuria - Discharge Dispostion Disposition: HOME Condition at time of disposition: Stable Decision to Admit order: No - Prescriptions Prescriptions: Cephalexin Monohydrate [Keflex -] 500 mg PO BID #14 capsule Docusate Sodium [Colace -] 100 mg PO DAILY #7 capsule metroNIDAZOLE 0.75% VAG. GEL [Metrogel 0.75% *Vaginal Gel* -] 1 applic VG BID # 1 tube - Referrals Referrals: Elvin Jacques MD [Staff Physician] - - Patient Instructions Printed Discharge Instructions: DI for Urinary Tract Infection (UTI) Additional Instructions: You are ; you also have a urinary tract infection Take the antibiotics twice a day for 7 days You can also use the metrogel twice a day for vaginal itching You will receive a phone call regarding your STD testing Follow [facility] Return to the ED for any new or worsening symptoms - Post Discharge Activity
[2018-04-04 19:40] LABS: ALBUMIN 3.9 g/dl (3.4-5.0); ALK PHOS 62 U/L (45-117); ANION GAP 9 MMOL/L (8-16); BILIRUBIN,TOTAL 0.1 mg/dL (0.2-1); BLOOD UREA NITROGEN 9 mg/dL (7-18); CALCIUM 9.6 mg/dL (8.5-10.1); CHLORIDE 108 mmol/L (98-107); CO2 24 mmol/L (21-32); CREATININE 0.7 mg/dL (0.55-1.3); GLUCOSE,RANDOM 100 mg/dL (74-106); POTASSIUM 4.7 mmol/L (3.5-5.1); SGOT/AST 9 U/L (15-37); SGPT/ALT 19 U/L (13-61); SODIUM 140 mmol/L (136-145); TOT PROT 7.5 g/dl (6.4-8.2)
[2018-04-04] MEDS ORDERED: ACETAMINOPHEN 325 MG TABLET (FP) PO ONE (19:57)
[2018-04-04] MEDS ORDERED: ONDANSETRON *ODT* 4 MG TABLET SL ONE (19:57)
[2018-04-04] MEDS ORDERED: ACETAMINOPHEN 325 MG TABLET (FP) ONE (20:29)
[2018-04-04] MEDS ORDERED: ONDANSETRON *ODT* 4 MG TABLET ONE (20:30)
== END 2018-04-04 22:22 | disposition home or self-care (01) ==
LOC: JER 18:10
DX: O26.891 Other specified pregnancy related conditions, first trimester (principal); O23.591 Infection of other part of genital tract in pregnancy, first trimester; B96.89 Other specified bacterial agents as the cause of diseases classified elsewhere; O23.11 Infections of bladder in pregnancy, first trimester; Z3A.01 Less than 8 weeks gestation of pregnancy
CPT/HCPCS: 36415; 76705-TC; 76817-TC; 80053; 81003; 81015; 84702; 85025; 87070; 87077; 87205; 87491; 87591; 87661; 99282-25; Q0162

== ENCOUNTER 2019-04-26 07:52 | Emergency (ER) | payer OTHER ==
[2019-04-26 08:01] VITALS: TEMP 98.3; BMI 38.7
--- NOTE | 2019-04-26 08:38 | PDOC ---
History of Present Illness - General Chief Complaint: Vaginal Bleeding Stated Complaint: 6WK BLEEDING Time Seen by Provider: 04/26/19 08:03 History Source: Patient Exam Limitations: No Limitations - History of Present Illness Initial Comments: HPI: 29 y/o female presenting to [facility] ER complaining of single episode of vaginal bleeding with clotted material this morning. Episode was spontaneous, brief, and self-resolved. No associated pain. Reports she experienced more frequent vaginal bleeding, as well as dysuria two weeks ago. Was evaluated in the DR. Told there was blood in her uterus, and given a shot of an unknown medication. Symptoms resolved. Denies abdominal trauma. OBGYN Hx: - LMP 14 Mar 2019 - G 3, T 1, P 1, A 0, L 2 - Last PAP Smear unknown - H/o STDs Chlamydia 3 years ago, received treatment Medical Hx: - Denies past medical history. Denies prescription medications. Surgical Hx: - x2 Review of Systems: In addition to that documented in the HPI above, the additional ROS was obtained: Constitutional- Denies fevers or chills Head- Denies vision changes ENMT- Denies sore throat CV- Denies chest pain Resp- Denies SOB GI- Denies abd pain, vomiting, or diarrhea - Denies painful urination MSK- Denies recent trauma Skin- Denies new rashes Neuro- Denies new numbness or tingling or weakness Endocrine- Denies polyuria Heme- Denies bruising Physical Examination: Vital signs and nursing notes reviewed. Constitutional- Well-developed, well-nourished adult female in no acute distress or obvious discomfort. Obese body habitus. Found sitting up on EXPORT FREIGHT MANAGER table. Answered all questions appropriately and completely. Head- Normocephalic. No obvious external signs of trauma. Neck- Supple, trachea is midline. Cardiovascular / Chest- Regular rate and regular rhythm. No murmur, rubs, c licks, or gallops. Peripheral pulses- radial pulses full. Respiratory- Breathing unlabored. Equal chest rise and fall. Clear to auscultation bilaterally. No stridor, no wheezing, no rhonchi. Gastrointestinal- Endorsed mild discomfort in supra-pubic region without grimace, guarding, or rebound. Globally, abdomen is soft and nondistended. No pulsatile masses. No overlying skin lesions or obvious signs of trauma. Female Pelvic: External genitalia unremarkable. Speculum exam revealed blood y/mucoid discharge protruding from the OS. No significant pooling. Vaginal wall mucosa is unremarkable. Bimanual exam without cervical motion tenderness, adnexal tenderness or any masses appreciated. RN chaperoned exam. Neuro- Alert and oriented x4. Moving all four extremities spontaneously. No fac ial asymmetry. No slurred speech. Skin- Purdy, warm, dry, and intact. Psych- Affect- appropriate. Mood- normal. Speech was non-labored, non- pressured. MDM: 29 y/o female presenting with a single, brief, and resolved episode of vaginal bleeding/passage of clotted material in the setting of 1st trimester . Unclear events / prescribed medications two weeks ago in [facility]. Vitals unremarkable for hypotension or tachycardia. Physical exam as described above. Possible completed AB vs threatened AB vs physiologic bleeding of vs ectopic . Blood type O+ noted from previous T/S in [facility]. Reviewed laboratory data. Not anemic. UA revealed bacteria and blood without pyuria, nitrites, or leukocyte esterase. Attempted to repeat with second UA revealing more bacteria and leukocyte esterase. Will prescribe Ceftriaxone for asymptomatic bacteriuria in setting of . Reviewed TVUS report. IUP noted. Noted possible bradycardia vs measurement of maternal HR. Given early , will not pursue further at this time. Pt made aware of this finding. Recommendation for close radiologic f/u underlined in paper report provided to the pt. 26 Apr 2019 11:49 AM Pt reassessed. Found walking around the department unassisted without difficulty. Again denies abdominal pain or vaginal bleeding. Discussed physical exam findings, laboratory results, and U/S findings with pt. Answered all questions. Provided return precautions. pt expressed verbal understanding and agreement with plan to discharge home with outpatient follow up. Provided copies of todays results. Pt establishing OB care at [facility] today with an appointment at 2pm. Past History - Past Medical History Allergies/Adverse Reactions: Allergies Allergy/AdvReac Type Severity Reaction Status Date / Time No Known Allergies Allergy Verified 04/26/19 07:58 Home Medications: Ambulatory Orders Cephalexin Monohydrate [Keflex -] 500 mg PO BID #14 capsule 04/26/19 Vit No.124/Iron/Folic [ Vitamin Tablet] 1 each PO DAILY #30 tablet 04/26/19 Anemia: No Asthma: No Cancer: No Cardiac Disorders: No CVA: No COPD: No CHF: No DVT: No Dementia: No Diabetes: No Dialysis: No GI Disorders: No Disorders: No HTN: No Hypercholesterolemia: No Kidney Stones: No Liver Disease: No Psychiatric Problems: No Seizures: No Thyroid Disease: No Lung CA: No - Surgical History Abdominal Surgery: Yes (2 c-sections) - Reproductive History (#): 2 Para: 1 - Immunization History Immunization Up to Date: No - Psycho Social/Smoking Cessation Hx Smoking Status: No Smoking History: Never smoked Have you smoked in the past 12 months: No Number of Cigarettes Smoked Daily: 0 Hx Alcohol Use: No Drug/Substance Use Hx: No Substance Use Type: None Hx Substance Use Treatment: No *Physical Exam - Vital Signs Last Vital Signs Temp Pulse Resp BP Pulse Ox 98.3 F 52 L 18 131/72 100 04/26/19 07:58 04/26/19 07:58 04/26/19 07:58 04/26/19 07:58 04/26/19 07:58 ED Treatment Course - LABORATORY CBC & Chemistry Diagram: 04/26/19 08:50 Discharge - Discharge Information Problems reviewed: Yes Clinical Impression/Diagnosis: Vaginal bleeding before 22 weeks gestation Condition: Good Disposition: HOME - Admission No - Additional Discharge Information Prescriptions: Cephalexin Monohydrate [Keflex -] 500 mg PO BID #14 capsule Vit No.124/Iron/Folic [ Vitamin Tablet] 1 each PO DAILY #30 tablet - Follow up/Referral - Patient Discharge Instructions Patient Printed Discharge Instructions: DI for Vaginal Bleeding During Pregna ncy, Cephalexin Additional Instructions: You were seen today for vaginal bleeding in early . Your blood work and ultrasound were normal. Your urine test showed bacteria, which will need to be treated. I have sent one prescription to your pharmacy. This is for the bacteria in your urine. Take as directed on the package inserts. Do not exceed the recommended dosages. You can take over the counter Tylenol as needed for pain. Take as directed on the package insert. Do not exceed the recommended dosage. Follow up with your OB doctor at your appointment today at 2PM. Take this packet with you because it has all of todays results. Your doctor will want to see them. Go to the nearest emergency department if your condition worsens or you feel like you need additional emergency evaluation. Print Language: LUXEMBOURGISH - Post Discharge Activity Work/Back to School Note: Back to Work
[2019-04-26 08:44] LABS: EPI CELLS 6.6 /HPF (0-5/HPF); HYALINE CASTS 9 /lpf (0-8); URINE APPEARANCE CLOUDY; URINE BACTERIA 119.6 /hpf (NEGATIVE); URINE BILIRUBIN NEGATIVE (NEGATIVE); URINE COLOR YELLOW; URINE GLUCOSE (UA) NEGATIVE (NEGATIVE); URINE KETONE NEGATIVE (NEGATIVE); URINE LEUK ESTERASE NEGATIVE (NEGATIVE); URINE NITRITE NEGATIVE (NEGATIVE); URINE PROTEIN NEGATIVE (NEGATIVE); URINE RBC 2 /hpf (0-4); URINE UROBILINOGEN 0.2 mg/dL (0.2-1.0); URINE WBC 6 /hpf (0-5)
--- NOTE | 2019-04-26 09:01 | PDOC ---
Attending Attestation - Resident Resident Name: James Lucio - ED Attending Attestation I have performed the following: I have examined & evaluated the patient, The case was reviewed & discussed with the resident, I agree w/resident's findings & plan, Exceptions are as noted - HPI HPI: 04/26/19 08:57 29y F at aprox 6 week presents with vaginal bleeding and a clot. pt was formerly evaluated at the DR for evalution of vag bleeding and had a 'shot' there approximately 2 weeks ago. The patient states that she was fine until today when she passed a large blood clot. She denies any other symptoms including abdominal pain, vomiting, back pain, current vaginal bleeding, vaginal discharge, dysuria, diarrhea. Patient does endorse mild nausea with this however she is tolerating oral intake and it is unchanged from her typical. On exam the patient is well-appearing, no distress Abdomen is soft nontender, no CVA tenderness no rebound or guarding - Physicial Exam PE: 04/29/19 10:15 see above - Medical Decision Making 04/26/19 12:08 The patient's blood work was reviewed, beta at 19,000 UA noted for positive leukoesterase as well as WBCs, will treat the patient for UTI, patient has been out patient [employer] appointment later today will discharge patient follow-up with [employer], the patient's TVUS results are pending. 04/26/19 12:15 The patient's UA noted for bacteria as the patient is will start patient on Keflex.
[2019-04-26 09:04] LABS: BASO % 0.6 % (0-2.0); EOS % 0.8 % (0-4.5); HEMATOCRIT 38.7 % (32.4-45.2); LYMPH % 24.5 % (8-40); MCH 29.6 pg (25.7-33.7); MCHC 33.7 g/dl (32.0-36.0); MEAN CELL VOLUME 87.8 fl (80-96); MEAN PLT VOLUME 8.4 fl (7.5-11.1); MONO % 4.1 % (3.8-10.2); PLATELET COUNT 402 K/MM3 (134-434); RDW 14.7 % (11.6-15.6); WHITE BLOOD COUNT 10.5 K/mm3 (4.0-10.0)
[2019-04-26 12:07] LABS: EPI CELLS 6.3 /HPF (0-5/HPF); HYALINE CASTS 6 /lpf (0-8); URINE APPEARANCE CLOUDY; URINE BACTERIA 208.7 /hpf (NEGATIVE); URINE BILIRUBIN NEGATIVE (NEGATIVE); URINE COLOR YELLOW; URINE GLUCOSE (UA) NEGATIVE (NEGATIVE); URINE KETONE 1+ (NEGATIVE); URINE LEUK ESTERASE 2+ (NEGATIVE); URINE NITRITE NEGATIVE (NEGATIVE); URINE PROTEIN NEGATIVE (NEGATIVE); URINE RBC 2 /hpf (0-4); URINE UROBILINOGEN 0.2 mg/dL (0.2-1.0); URINE WBC 27 /hpf (0-5)
[2019-04-26 12:56] VITALS: BP 128/70; PULSE 55
== END 2019-04-26 13:00 | disposition home or self-care (01) ==
LOC: JER 07:52
DX: O26.891 Other specified pregnancy related conditions, first trimester (principal); Z3A.01 Less than 8 weeks gestation of pregnancy
CPT/HCPCS: 36415; 76817-TC; 81003; 84702; 84703; 85025; 87086; 99284-25

== ENCOUNTER 2019-09-06 14:32 | Emergency (ER) | payer OTHER ==
--- NOTE | 2019-09-06 14:44 | PDOC ---
Rapid Medical Evaluation Chief Complaint: Labor Assessment Time Seen by Provider: 09/06/19 14:41 Medical Evaluation: Allergies Allergy/AdvReac Type Severity Reaction Status Date / Time No Known Allergies Allergy Verified 07/30/19 03:20 09/06/19 14:41 I have performed a brief in-person evaluation of this patient. The patient presents with a chief complaint of: high risk 27wks present with cramping lower abdominal pains and feeling of water broke which started 30mins ago. pt report being treated with vaginal progesterone due to high risk of early pre-term labor Pertinent physical exam findings: afebrile. 26wks gravid abdominen in NAD I have ordered the following: nothing The patient will proceed to the labor floor for further evaluation. Discharge Disposition - Diagnosis contractions - Discharge Dispostion Condition at time of disposition: Stable - Referrals - Patient Instructions - Post Discharge Activity
[2019-09-06 14:49] VITALS: BMI 43.9
[2019-09-06] MEDS ORDERED: BETAMET ACET/BETAMET NA PH 30 MG/5 ML VIAL ONE (18:08)
--- NOTE | 2019-09-06 18:34 | PD.OB.PROG ---
Past Medical History - Primary Care Physician PCP:: Louis Roberto Documenting Provider Type: Attending - Admission Chief Complaint: leaking of fluid History of Present Illness: Patient is been followed by MFM service due to H/O PTD and short cervix on vaginal progesterone. She reports the feeling of pelvic pressure slightly improved. She noticed and small amount of fluid per vagina and came in for evaluation. 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 Cardio/Vascular: Denies/None Pulmonary: Denies/None Gastrointestinal: Denies/None Hepatobiliary: Denies/None Renal/: Denies/None Reproductive: Denies/None ...: 3 ...Para: 2 ...Term: 2 ...: 0 ...Spon : 0 ...Induced : 0 ...Living Children: 2 ...EDC by Daniela: 12/19/19 Heme/Onc: Denies/None Infectious Disease: Denies/None Psych: Denies/None Musculoskeletal: Denies/None Rheumatology: Denies/None ENT: Denies/None Endocrine: Denies/None Dermatology: Denies/None - Past Surgical History Past Surgical History: Yes: (x2) - Smoking History Smoking history: Never smoked Have you smoked in the past 12 months: No Aproximately how many cigarettes per day: 0 - Alcohol/Substance Use Hx Alcohol Use: No - Social History ADL: Independent Occupation: works at [employer] History of Recent Travel: No Review of Systems Findings/Remarks: pelvic pressure and episode of small leaking of fluid - Review of Systems Constitutional: reports: No Symptoms Eyes: reports: No Symptoms HENT: reports: No Symptoms Neck: reports: No Symptoms Cardiovascular: reports: No Symptoms Respiratory: reports: No Symptoms Gastrointestinal: reports: No Symptoms Genitourinary: reports: Other Breasts: reports: No Symptoms Reported Musculoskeletal: reports: No Symptoms, Other (left groin discomfort) Integumentary: reports: No Symptoms Neurological: reports: No Symptoms Endocrine: reports: No Symptoms Hematology/Lymphatic: reports: No Symptoms Psychiatric: reports: No Symptoms Physical Exam - Obstetrical Vital Signs: Vital Signs Temperature 98.8 F 09/06/19 15:43 Pulse Rate 82 09/06/19 15:43 Respiratory Rate 17 09/06/19 15:43 Blood Pressure 106/56 L 09/06/19 15:43 O2 Sat by Pulse Oximetry (%) 100 09/06/19 14:33 Constitutional: Yes: No Distress HENT: Yes: Atraumatic Neck: Yes: Supple Cardiovascular: Yes: Regular Rate and Rhythm - Abdominal Exam/OB Contractions: No Regularity: Irritability Intensity: Unaware Monitor Mode: External Heart Rate (range): 140 Category: I Accelerations: Uniform Decelerations: None - Vaginal Exam/OB Vaginal Exam Deferred: No Vaginal Bleeding: No Speculum Exam: Yes (no pooling, no blood, visually closed, negative nitrazine) Dilatation (cm): 0 Effacement (%): 50 Amniotic Membrane Status: Intact Nitrazine Test: Negative Station: -3 - Physical Exam Extremities: Yes: WNL, Other (abd: soft, obese, gravid, n/t, n/d, no rebound, no guarding) Edema: LLE: 1+, RLE: 1+ Psychiatric: Yes: Alert, Oriented Assessment/Plan 29 y/o P1102 @ 25+wks, shorts cervix and H/O PTD, on vaginal progesterone, followed by MFM service, no evidence of PPROM nor active PTL, reassuring status. Decreased cervical length on today's sono, stable condition and reassuring status. Patient counseled regarding beta series. All questions answered and in agreement. Full anteparetum/PTL precautions discussed -AU -Beta # 1 today and return tomorrow for beta # 2 -Continuous monitoring -Consider discharge
[2019-09-06] MEDS ORDERED: BETAMET ACET/BETAMET NA PH 30 MG/5 ML VIAL IM ONE (18:46)
[2019-09-06 18:57] VITALS: TEMP 98.6
[2019-09-06 20:39] LABS: PH,URINE 6.5 (5.0-8.0); URINE APPEARANCE CLEAR; URINE BILIRUBIN NEGATIVE (NEGATIVE); URINE COLOR YELLOW; URINE GLUCOSE (UA) NEGATIVE (NEGATIVE); URINE KETONE TRACE (NEGATIVE); URINE LEUK ESTERASE NEGATIVE (NEGATIVE); URINE NITRITE NEGATIVE (NEGATIVE); URINE PROTEIN NEGATIVE (NEGATIVE); URINE UROBILINOGEN 0.2 mg/dL (0.2-1.0)
--- NOTE | 2019-09-06 21:58 | PD.OB.PROG ---
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 Cardio/Vascular: Denies/None Pulmonary: Denies/None Gastrointestinal: Denies/None Hepatobiliary: Denies/None Renal/: Denies/None ...: 3 ...Para: 2 ...Term: 2 ...: 0 ...Spon : 0 ...Induced : 0 ...Living Children: 2 ...EDC by Sono: 12/19/19 Heme/Onc: Denies/None Infectious Disease: Denies/None Psych: Denies/None Musculoskeletal: Denies/None Rheumatology: Denies/None ENT: Denies/None Endocrine: Denies/None Dermatology: Denies/None - Past Surgical History Past Surgical History: Yes: (x2) - Advance Directives Advance Directives: Yes: Living Will - Smoking History Smoking history: Never smoked Have you smoked in the past 12 months: No Aproximately how many cigarettes per day: 0 - Alcohol/Substance Use Hx Alcohol Use: No - Social History Usual Living Arrangement: With Significant Other Do you think of yourself as: Straight/Heterosexual ADL: Independent Occupation: works at [email or web address] History of Recent Travel: No Review of Systems - Review of Systems Constitutional: reports: No Symptoms Eyes: reports: No Symptoms HENT: reports: No Symptoms Neck: reports: No Symptoms Cardiovascular: reports: No Symptoms Respiratory: reports: No Symptoms Gastrointestinal: reports: No Symptoms Genitourinary: reports: No Symptoms Breasts: reports: No Symptoms Reported Musculoskeletal: reports: No Symptoms Integumentary: reports: No Symptoms Neurological: reports: No Symptoms Endocrine: reports: No Symptoms Hematology/Lymphatic: reports: No Symptoms Psychiatric: reports: No Symptoms Physical Exam - Obstetrical Vital Signs: Vital Signs Temperature 98.6 F 09/06/19 18:56 Pulse Rate 92 H 09/06/19 18:56 Respiratory Rate 17 09/06/19 18:56 Blood Pressure 122/74 09/06/19 18:56 O2 Sat by Pulse Oximetry (%) 100 09/06/19 14:33 Constitutional: Yes: Well Nourished, No Distress, Calm Eyes: Yes: WNL, Conjunctiva Clear, EOM Intact HENT: Yes: WNL, Atraumatic, Normocephalic Neck: Yes: WNL, Supple, Trachea Midline Cardiovascular: Yes: WNL, Regular Rate and Rhythm Lungs: Clear to auscultation Breast(s): Yes: WNL - Abdominal Exam/OB Fundal Height: 25 Number of Fetuses: Single Presentation: Vertex Contractions: No Regularity: Irritability Intensity: Unaware Monitor Mode: External Heart Rate (range): 130 Category: I Accelerations: Uniform Decelerations: None - Vaginal Exam/OB Vaginal Exam Deferred: Yes Vaginal Bleeding: No Speculum Exam: No Dilatation (cm): 0 Effacement (%): 50 Amniotic Membrane Status: Intact Presentation: Vertex/Position Station: -2 - Physical Exam Musculoskeletal: Yes: WNL Extremities: Yes: WNL Integumentary: Yes: WNL ...Motor Strength: WNL Psychiatric: Yes: WNL, Alert, Oriented Assessment/Plan per dr birmingham request, i ve her one more time, cervix is same as before, 0, 50%, -2, no contractions were seen, will dc pt home per dr birmingham order.
[2019-09-06 22:32] VITALS: BP 120/72; PULSE 88
[2019-09-07 08:34] LABS: POC NITRAZINE NEG
== END 2019-09-06 22:01 | disposition home or self-care (01) ==
LOC: JER 14:32
PROC: 3E023GC Introduction of Other Therapeutic Substance into Muscle, Percutaneous Approach (ICD-10-PCS; principal; 2019-09-06)
DX: O60.03 Preterm labor without delivery, third trimester (principal); Z3A.27 27 weeks gestation of pregnancy
CPT/HCPCS: 81003; 83986-QW; 99284-25

== ENCOUNTER 2019-09-08 18:00 | Inpatient (IN) | payer OTHER ==
[2019-09-08 18:52] VITALS: BMI 42.5
[2019-09-08] MEDS ORDERED: ELECTROLYTE-148 SOLN 1,000 ML IV SCH (19:00)
--- NOTE | 2019-09-08 19:01 | HP ---
Past Medical History - Admission Chief Complaint: Labor History of Present Illness: 29yo @ 25.3wks by LMP/sono sent in from the office for labor evaluation, possible transfer to [facility]. 09/05 presented to L&D with cramping and ? LOF. Sono done showing shortened dynamic cervix 1.5cm with funneling, breech presentation. Cervix closed on that evaluation and given BMZ #1. 09/06 returned to L&D for BMZ #2, given IV hydration, but no cervical exam done. Seen today in the office, exam in office revealed pt is now 1cm dilated. Preg c/b: Prior PTD at 27wks via C/S, followed by repeat C/S at 39wks (without Shelley use), obesity. Started on Vaginal progesterone 100mg QHS on 08/02 by ERIN Emery (cervix 3.5cm at that time) Today reports vaginal discomfort and pressure, no VB/LOF. +FM. 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: Alzheimer's, CVA, Dementia, Migraine, Multiple Sclerosis, Peripheral Neuropathy, Parkinson's, Seizure, Syncope, TIA, Vertigo, Other Cardiovascular: No: AFIB, Aneurysm, Aortic Insufficiency, Aortic Stenosis, CAD, CHF, Deep Vein Thrombosis, HTN, Hyperlipdemia, [place], Mitral Insufficiency, Mitral Stenosis, Murmur, Pulmonary Hypertension, Other Pulmonary: No: Asthma, Bronchitis, Cancer, COPD, O2 Dependent, Pneumonia, Previously Intubated, Pulmonary Embolus, Pulmonary Fibrosis, Sleep Apnea, Other Gastrointestinal: No: Ascites, Cancer, Constipation, Crohn's Disease, Diverticulitis, Diverticulosis, Esophageal Varices, Gastritis, GERD, GI Bleed, Hemorrhoids, Hiatal Hernia, Inflamatory Bowel Disease, Irritable Bowel Disease, Pancreatitis, Peptic Ulcer Disease, Ulcerative Colitis, Other Hepatobiliary: No: Cirrhosis, Cholelithiasis, Cholecystitis, Choledocholithiasis, Hepatitis A, Hepatitis B, Hepatitis C, Other Renal/: No: Renal Failure, Renal Inusuff, BPH, Cancer, Hematuria, Hemodialysis, Neurogenic Bladder, Renal Calculi, UTI, Other Reproductive: No: Ectopic , Endometriosis, Fibroids, PID, Polycystic Ovary Syndrome, Postmenopausal, Other ...: 4 ...Para: 2 ...Term: 1 ...: 1 ...Spon : 0 ...Induced : 1 ...Living Children: 2 ...Multiple Gestation: 0 ... Weeks Gestation by Dates: 25.3 ...EDC by Sono: 12/19/19 Heme/Onc: Yes: Anemia - Past Surgical History Past Surgical History: Yes: (11/14/07 & 12/22/11) Hx Myomectomy: No Hx Transabdominal Cerclage: No - Smoking History Smoking history: Never smoked Have you smoked in the past 12 months: No Aproximately how many cigarettes per day: 0 - Alcohol/Substance Use Hx Alcohol Use: No History of Substance Use: reports: None - Social History Usual Living Arrangement: Yes: With Spouse Do you think of yourself as: Straight/Heterosexual ADL: Independent Occupation: works at [employer] History of Recent Travel: No Home Medications - Allergies Allergies/Adverse Reactions: Allergies Allergy/AdvReac Type Severity Reaction Status Date / Time No Known Allergies Allergy Verified 09/08/19 18:35 - Home Medications Home Medications: Ambulatory Orders Pnv No.95/Ferrous Fum/Folic AC [ Vitamin Tablet] 1 each PO DAILY 07/30/19 Progesterone, Micronized [Progesterone] 100 supp VG HS 09/07/19 Review of Systems - Review of Systems Constitutional: reports: No Symptoms Cardiovascular: reports: No Symptoms Respiratory: reports: No Symptoms Gastrointestinal: reports: No Symptoms Genitourinary: reports: Other (vaginal pressure) Physical Exam - Maternity - Abdominal Exam/OB Number of Fetuses: Single Presentation: Breech Contractions: No Monitor Mode: External Heart Rate Location: Midline Category: I Accelerations: Non-Uniform Decelerations: None - Vaginal Exam/OB Vaginal Bleeding: No Speculum Exam: No Dilatation (cm): 1 Effacement (%): 0 Amniotic Membrane Status: Intact Presentation: Full/Complete Breech Station: -3 - Physical Exam Edema: No Imaging - Results Ultrasound: Report Reviewed Problem List - Problems (1) labor in second trimester Code(s): O60.02 - LABOR WITHOUT DELIVERY, SECOND TRIMESTER Assessment/Plan 29yo @ 25.3wks here for labor evaluation; H/O PTD at 27wk with PTL symptoms starting at 25 wks. Pt examined in office 2 hours prior to evaluation here; no cervical change since office exam. Cervical exam is long/1/-3, breech. No contractions on the monitor, and she herself, is not reporting any contractions. Will admit to L&D, admission labs IV hydrate overnight If stable, repeat vaginal exam in morning, (prn overnight pending symptoms or change in monitoring) and if stable in AM- will consider repeating sono after discussing case with MFM. Delivery seems not likely imminent at this time given lack of contractions and no cervical change since office evaluation. Pt has completed BMZ 1 & 2 09/05 and 09/06. IF PTL symptoms start, will initiate Mag for neuro PPX and discuss transfer of care to [facility]. FHT RGA, appropriate, will continuously monitor overnight. Continue Vaginal progesterone 100mg (home dose) Plan of care discussed with patient; whom expresses understanding. Yessica Angeles Md
[2019-09-08 19:29] LABS: BASO % 0.1 % (0-2.0); EOS % 0.1 % (0-4.5); HEMATOCRIT 33.6 % (32.4-45.2); HEMOGLOBIN 11.1 GM/dL (10.7-15.3); LYMPH % 12.6 % (8-40); MCH 29.4 pg (25.7-33.7); MCHC 32.9 g/dl (32.0-36.0); MEAN CELL VOLUME 89.2 fl (80-96); MEAN PLT VOLUME 9.2 fl (7.5-11.1); MONO % 6.9 % (3.8-10.2); NEUT % 80.3 % (42.8-82.8); PLATELET COUNT 304 K/MM3 (134-434); RBC 3.76 M/mm3 (3.60-5.2); RDW 14.4 % (11.6-15.6); WHITE BLOOD COUNT 13.7 K/mm3 (4.0-10.0)
[2019-09-08 19:41] LABS: INR 0.98 (0.83-1.09); PROTHROMBIN TIME (PATIENT) 11.6 SEC (9.7-13.0)
[2019-09-08 19:44] LABS: ACTIVATED PTT 25.3 SECONDS (25.2-36.5)
[2019-09-08 19:46] LABS: BLOOD UREA NITROGEN 8.4 mg/dL (7-18); CALCIUM 9.5 mg/dL (8.5-10.1); CREATININE 0.6 mg/dL (0.55-1.3); POTASSIUM 4.5 mmol/L (3.5-5.1)
--- NOTE | 2019-09-08 22:41 | PN ---
Progress Note (short form) - Note Progress Note: Will do intermittent monitoring with continuous toco No contractions seen since admission Pt took home meds- vaginal progesterone Yessica Angeles MD Problem List - Problems (1) labor in second trimester Code(s): O60.02 - LABOR WITHOUT DELIVERY, SECOND TRIMESTER
--- NOTE | 2019-09-09 07:24 | PN ---
Ante-Partal Exam - Subjective Subjective: Feels well. No further pain since admission. +FM. No VB/LOF. Vital Signs: Vital Signs Temperature 98.7 F 09/09/19 06:18 Pulse Rate 82 09/09/19 06:18 Respiratory Rate 18 09/09/19 06:18 Blood Pressure 110/68 09/09/19 06:18 O2 Sat by Pulse Oximetry (%) 99 09/08/19 21:00 Bleeding: No Headache: No Visual changes: No Right upper quadrant pain: No - Contractions Contractions: No Monitor Mode: External - Exam during Labor Variability: Moderate Heart Rate Location: Midline Category: I Monitor Accelerations: Present Monitor Decelerations: None Exam: Vaginal Dilatation (cm): 1 Effacement (%): 0 Amniotic Membrane Status: Intact Presentation: Full/Complete Breech Station: -3 - Assessment/Plan Assessment/Plan: 29yo @ 25.4wks here for observation of PTL No contractions since admission, no cervical change management 12 hours. Plan for repeat MFM sono this morning to re-evaluate the cervix and for possible new recommendations. Discussed that she will likely need official transfer of care to [facility] for continuing her care going forward, which has to be done through the office. Low suspicion of PTL and imminent delivery at this time, therefore holding off on Mag for neuro PPX and transfer to [facility] at this point. Yessica Angeles MD
[2019-09-09 10:16] VITALS: BP 105/51; PULSE 77; TEMP 98
--- NOTE | 2019-09-09 10:43 | DS ---
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 No: Calf Tenderness Edema: No Integumentary: Yes: WNL, Incision (pfannensteil scar) Neurological: Yes: WNL ...Motor Strength: WNL Psychiatric: Yes: WNL Labs: CBC, BMP 09/08/19 19:05 09/08/19 19:05 Laboratory Tests 09/08/19 09/08/19 09/08/19 18:35 19:05 19:05 PT with INR 11.60 INR 0.98 PTT ([facility] FS) 25.3 Syphilis Serology Reactive A* RPR Titer COVID-19 ([facility]) Pending 09/08/19 19:05 PT with INR INR PTT ([facility]) Syphilis Serology RPR Titer Reactive 1:2 H COVID-19 ([facility]) Delivery, Single - [place] Feeding Plan Initial Plan: Elected not to breastfeed exclusively throughout hospitalization Remarks - Remarks Remarks: 29 yrs , 25.4 weeks previous c/sx2, s/p short cx measured on 09/06/19 1.5 cm pt received betamethasone 12.5 mg x09/05 & 09/06 IV fluids hydration given on 09/07/19 due to ? dehydration, urine trac ketone. u/a normal 09/08/19 pt admitted due to c/o vaginl pain cx 1cm dilated pt observed overnight in L& D no uc noted until AM, pt no complains of pain repeat pelvic exam by admitting MD Dr Angeles at 7.15 AM 1cm, no change in cx Repeat US by MFM today AM , SLIUP ,vx , ant placenta, normal fluid , , no measurable cx today, funneling ,?debri . Currently pt does not c/o cramps or pressure to me . FM no uc , fhr 150bpm appropriate for GA v/s stable 10.[address] Wharton contacted at [facility] through Transport Cr . Information given. Pt is accepted for transfer pt notified, consent taken for transfer plan arrange transport via [facility] to [facility] Discharge Summary Problems reviewed: Yes Reason For Visit: LABOR ADMIT Current Active Problems labor in second trimester (Acute) Condition: Stable - Instructions Disposition: TRANSFER ACUTE CARE/OTHER HOSP - Home Medications Comprehensive Discharge Medication List: Ambulatory Orders Pnv No.95/Ferrous Fum/Folic AC [ Vitamin Tablet] 1 each PO DAILY 07/30/19 Progesterone, Micronized [Progesterone] 100 supp VG HS 09/07/19
== END 2019-09-09 11:08 | disposition short-term general hospital (02) | DRG 563 ==
LOC: JLDR 18:00
PROVIDERS: ADMIT Obstetrics & Gynecology; ATTEND Obstetrics & Gynecology
DX: O60.02 Preterm labor without delivery, second trimester (principal); O26.872 Cervical shortening, second trimester; O99.212 Obesity complicating pregnancy, second trimester; Z3A.25 25 weeks gestation of pregnancy
CPT/HCPCS: 36415; 80048; 85025; 85610; 85730; 86593; 86780; 86850; 86900; 86901; U0003

== ENCOUNTER 2019-10-26 22:39 | Emergency (ER) | payer OTHER ==
[2019-10-26 22:50] VITALS: BP 130/79; PULSE 81; TEMP 98.2; BMI 40.7
--- NOTE | 2019-10-26 23:32 | PDOC ---
History of Present Illness - General Chief Complaint: Wound Stated Complaint: PAIN/VAG BLEED Time Seen by Provider: 10/26/19 23:31 History Source: Patient - History of Present Illness Initial Comments: 10/26/19 23:50 29-year-old female complaining of small drainage from site from 1 month ago. Patient reports that yesterday she slept on her abdomen noted a small amount of drainage today with some pain. Denies fever/chills, vaginal bleeding, abdominal pain. Past History - Medical History Allergies/Adverse Reactions: Allergies Allergy/AdvReac Type Severity Reaction Status Date / Time No Known Allergies Allergy Verified 10/06/19 02:50 Home Medications: Ambulatory Orders Pnv No.95/Ferrous Fum/Folic AC [ Vitamin Tablet] 1 each PO DAILY 07/30/19 Ferrous Sulfate [Iron] 325 mg PO DAILY 10/06/19 Mupirocin Ointment [Bactroban 2% Ointment -] 1 applic TP TID #1 applic 10/27/19 Anemia: No Asthma: No Cancer: No Cardiac Disorders: No CVA: No COPD: No CHF: No DVT: No Dementia: No Diabetes: No Dialysis: No GI Disorders: No Disorders: No HTN: No Hypercholesterolemia: No Kidney Stones: No Liver Disease: No Psychiatric Problems: No Seizures: No Thyroid Disease: No Lung CA: No - Surgical History Abdominal Surgery: Yes (2 c-sections) - Reproductive History Is Patient Now?: No (#): 3 Para: 2 Therapeutic (s) & number: No Spontaneous : 0 - Immunization History Immunization Up to Date: No - Psycho-Social/Smoking History Smoking Status: No Smoking History: Never smoked Have you smoked in the past 12 months: No Number of Cigarettes Smoked Daily: 0 - Substance Abuse Hx (Audit-C & DAST Scrn) How often the patient has a drink containing alcohol: Never Score: In Men: 4 or > Positive; In Women: 3 or > Positive: 0 Screen Result (Pos requires Nsg. Audit-10AR): Negative *Physical Exam - Vital Signs Last Vital Signs Temp Pulse Resp BP Pulse Ox 98.2 F 81 20 130/79 100 10/26/19 22:44 10/26/19 22:44 10/26/19 22:44 10/26/19 22:44 10/26/19 22:44 - Physical Exam General Appearance: Yes: Appropriately Dressed Extremity: positive: Other (wound on c section site ~ 1cm wound dehiscense? scant serous drainage. no surrounding erythema or pus drainage noted. ). negative: Erythema Integumentary: positive: Normal Color, Warm Neurologic: positive: Fully Oriented, Alert, Normal Mood/Affect ED Progress Note - Progress Note Progress Note: 10/27/19 06:11 with minimal wound dehiscense P: bactroban outpatient wedding coordinator follow up Discharge - Discharge Information Problems reviewed: Yes Clinical Impression/Diagnosis: section wound seroma, Disposition: HOME - Additional Discharge Information Prescriptions: Mupirocin Ointment [Bactroban 2% Ointment -] 1 applic TP TID #1 applic - Follow up/Referral Referrals: Louis Roberto MD [Staff Physician] - Call tomorrow - Patient Discharge Instructions Patient Printed Discharge Instructions: Wound Dehiscence Additional Instructions: apply bactroban to the site twice daily follow up with your publishing director as soon as possible. - Post Discharge Activity
== END 2019-10-27 00:29 | disposition home or self-care (01) ==
LOC: JER 22:39
DX: O90.2 Hematoma of obstetric wound (principal)
CPT/HCPCS: 99283-25

== ENCOUNTER 2020-06-27 22:07 | Emergency (ER) | payer OTHER ==
[~2020-06-27 22:07] MED LIST: LIDOCAINE PATCH REMOVAL MC SCH
[2020-06-27 22:23] VITALS: BP 111/72; PULSE 92; TEMP 97.9; BMI 38.7
[2020-06-27] MEDS ORDERED: LIDOCAINE 5% TOPICAL PATCH TP ONE (23:04)
[2020-06-27] MEDS ORDERED: diazePAM 5 MG TABLET PO ONE (23:04)
[2020-06-27] MEDS ORDERED: KETOROLAC TROMETHAMINE 30 MG/1 ML VIAL IM ONE (23:04)
[2020-06-27] MEDS ORDERED: diazePAM 5 MG TABLET ONE (23:24)
[2020-06-27] MEDS ORDERED: LIDOCAINE 5% TOPICAL PATCH ONE (23:24)
[2020-06-27] MEDS ORDERED: KETOROLAC TROMETHAMINE 30 MG/1 ML VIAL ONE (23:24)
[2020-06-28] MEDS ORDERED: LIDOCAINE PATCH REMOVAL MC ONE (11:00)
== END 2020-06-28 00:06 | disposition home or self-care (01) ==
LOC: JER 22:07
PROC: 3E0233Z Introduction of Anti-inflammatory into Muscle, Percutaneous Approach (ICD-10-PCS; principal; 2020-06-27)
DX: M54.41 Lumbago with sciatica, right side (principal)
CPT/HCPCS: 99284-25

== ENCOUNTER 2020-12-15 19:53 | Emergency (ER) | payer OTHER ==
[2020-12-15 19:57] VITALS: BP 102/71; PULSE 87; TEMP 97; BMI 42.5
[2020-12-15] MEDS ORDERED: SODIUM CHLORIDE 1,000 ML IV STA (20:10)
[2020-12-15] MEDS ORDERED: KETOROLAC TROMETHAMINE 30 MG/1 ML VIAL IVPUSH ONE (20:10)
[2020-12-15] MEDS ORDERED: METHOCARBAMOL 500 MG TABLET PO ONE (20:10)
[2020-12-15] MEDS ORDERED: METHOCARBAMOL 500 MG TABLET ONE (20:15)
[2020-12-15] MEDS ORDERED: KETOROLAC TROMETHAMINE 30 MG/1 ML VIAL ONE (20:15)
[2020-12-15 20:46] LABS: HEMATOCRIT 39.1 % (32.4-45.2); HEMOGLOBIN 13.1 GM/dL (10.7-15.3); MCHC 33.4 g/dl (32.0-36.0); MEAN CELL VOLUME 86.9 fl (80-96); MEAN PLT VOLUME 8.7 fl (7.5-11.1); PH,URINE 5.5 (5.0-8.0); PLATELET COUNT 389 10^3/uL (134-434); RDW 14.6 % (11.6-15.6); URINE APPEARANCE CLOUDY; URINE BILIRUBIN NEGATIVE (NEGATIVE); URINE COLOR YELLOW; URINE GLUCOSE (UA) NEGATIVE (NEGATIVE); URINE KETONE NEGATIVE (NEGATIVE); URINE LEUK ESTERASE NEGATIVE (NEGATIVE); URINE NITRITE NEGATIVE (NEGATIVE); URINE PROTEIN NEGATIVE (NEGATIVE); URINE UROBILINOGEN 0.2 mg/dL (0.2-1.0); WHITE BLOOD COUNT 9.6 K/mm3 (4.0-10.0)
[2020-12-15 21:25] LABS: ALBUMIN 4.2 g/dl (3.4-5.0); BLOOD UREA NITROGEN 10.9 mg/dL (7-18); CALCIUM 9.9 mg/dL (8.5-10.1)
[2020-12-15 21:28] LABS: CREATININE 0.7 mg/dL (0.55-1.3)
[2020-12-15 21:30] LABS: BILIRUBIN,TOTAL 0.2 mg/dL (0.2-1)
[2020-12-15] MEDS ORDERED: traMADol HCL 50 MG TABLET PO ONE (21:51)
[2020-12-15] MEDS ORDERED: traMADol HCL 50 MG TABLET ONE (21:52)
[2020-12-16] MEDS ORDERED: traMADol HCL 50 MG TABLET PO ONE (00:38)
[2020-12-16] MEDS ORDERED: traMADol HCL 50 MG TABLET ONE (00:44)
== END 2020-12-16 01:09 | disposition home or self-care (01) ==
LOC: JERFT 19:53 → JER 19:53
PROC: 3E0333Z Introduction of Anti-inflammatory into Peripheral Vein, Percutaneous Approach (ICD-10-PCS; principal; 2020-12-15)
PROC: 3E0337Z Introduction of Electrolytic and Water Balance Substance into Peripheral Vein, Percutaneous Approach (ICD-10-PCS; 2020-12-15)
DX: M54.50 Low back pain, unspecified (principal)
CPT/HCPCS: 36415; 74176-TC; 80053; 81003; 84703; 85027; 87086; 99284-25

== ENCOUNTER 2021-05-02 15:54 | Emergency (ER) | payer OTHER ==
[2021-05-02 16:19] VITALS: BP 117/69; PULSE 75; TEMP 98; BMI 42.5
[2021-05-02] MEDS ORDERED: CEPHALEXIN MONOHYDRATE 500 MG CAPSULE (UD) PO ONE (17:41)
[2021-05-02] MEDS ORDERED: KETOROLAC TROMETHAMINE 30 MG/1 ML VIAL IM ONE (17:41)
[2021-05-02] MEDS ORDERED: KETOROLAC TROMETHAMINE 30 MG/1 ML VIAL ONE (17:47)
[2021-05-02] MEDS ORDERED: CEPHALEXIN MONOHYDRATE 500 MG CAPSULE (UD) ONE (17:47)
== END 2021-05-02 17:58 | disposition home or self-care (01) ==
LOC: JERFT 15:54
PROC: 0H97XZZ Drainage of Abdomen Skin, External Approach (ICD-10-PCS; principal; 2021-05-02)
PROC: 3E023GC Introduction of Other Therapeutic Substance into Muscle, Percutaneous Approach (ICD-10-PCS; 2021-05-02)
DX: L02.211 Cutaneous abscess of abdominal wall (principal)
CPT/HCPCS: 99284-25

== ENCOUNTER 2021-08-13 00:55 | Emergency (ER) | payer OTHER ==
[2021-08-13 01:15] VITALS: BP 106/72; PULSE 109; TEMP 98.2; BMI 34.4
[2021-08-13] MEDS ORDERED: RABIES VACCINE (PCEC)/PF 2.5 UNIT/VIAL IM ONE (02:23)
[2021-08-13] MEDS ORDERED: RABIES IMMUNE GLOBULIN 300 UNITS/1 ML VIAL IM ONE (02:23)
[2021-08-13] MEDS ORDERED: ACETAMINOPHEN 500 MG TABLET (FP) PO ONE (02:25)
[2021-08-13] MEDS ORDERED: AMOX TR/POT CLAV 875MG/125MG TABLETS (FP) PO ONE (02:26)
[2021-08-13] MEDS ORDERED: AMOX TR/POT CLAV 875MG/125MG TABLETS (FP) ONE (02:56)
[2021-08-13] MEDS ORDERED: ACETAMINOPHEN 325 MG TABLET (FP) ONE (02:57)
== END 2021-08-13 06:33 | disposition home or self-care (01) ==
LOC: JER 00:55
PROC: 3E0234Z Introduction of Serum, Toxoid and Vaccine into Muscle, Percutaneous Approach (ICD-10-PCS; principal; 2021-08-13)
DX: S81.852A Open bite, left lower leg, initial encounter (principal); S81.812A Laceration without foreign body, left lower leg, initial encounter; W54.0XXA Bitten by dog, initial encounter
CPT/HCPCS: 73610-TC-LT-FY; 90375; 90471; 90675; 99284-25

== ENCOUNTER 2021-08-16 11:13 | Emergency (ER) | payer OTHER ==
[2021-08-16 11:22] VITALS: BP 115/74; PULSE 96; TEMP 98.1; BMI 34.4
[2021-08-16] MEDS ORDERED: RABIES VACCINE (PCEC)/PF 2.5 UNIT/VIAL IM ONE ×2 (12:03→12:07)
== END 2021-08-16 12:19 | disposition home or self-care (01) ==
LOC: JERFT 11:13 → JER 11:13 → JERFT 12:19
PROC: 3E0234Z Introduction of Serum, Toxoid and Vaccine into Muscle, Percutaneous Approach (ICD-10-PCS; principal; 2021-08-16)
DX: Z29.14 Encounter for prophylactic rabies immune globulin (principal)
CPT/HCPCS: 90675; 99284-25

== ENCOUNTER 2021-08-20 22:32 | Emergency (ER) | payer OTHER ==
[2021-08-20 22:50] VITALS: BP 106/70; PULSE 83; TEMP 97; BMI 35.4
[2021-08-21] MEDS ORDERED: RABIES VACCINE (PCEC)/PF 2.5 UNIT/VIAL IM ONE ×2 (00:51→00:54)
== END 2021-08-21 02:29 | disposition home or self-care (01) ==
LOC: JER 22:32 → JERFT 22:32
PROC: 3E023GC Introduction of Other Therapeutic Substance into Muscle, Percutaneous Approach (ICD-10-PCS; principal; 2021-08-20)
DX: Z20.3 Contact with and (suspected) exposure to rabies (principal)
CPT/HCPCS: 90675; 96372; 99283-25

== ENCOUNTER 2022-04-05 11:03 | Emergency (ER) | payer OTHER ==
[2022-04-05 11:07] VITALS: BMI 37.3
[2022-04-05] MEDS ORDERED: ONDANSETRON 4 MG/2 ML VIAL IVPUSH ONE (11:15)
[2022-04-05] MEDS ORDERED: SODIUM CHLORIDE 0.9% 500 ML INFUS.BAG IV ONE (11:15)
[2022-04-05] MEDS ORDERED: ONDANSETRON 4 MG/2 ML VIAL ONE (11:21)
[2022-04-05] MEDS ORDERED: ACETAMINOPHEN 1000 MG/100 ML BAG IVPB ONE (11:34)
[2022-04-05] MEDS ORDERED: ACETAMINOPHEN INJECTION 100 ML IVPB ONE (11:36)
[2022-04-05] MEDS ORDERED: MAG HYDROX/AL HYDROX/SIMETH 30 ML UNIT-DOSE CUP PO ONE (11:42)
[2022-04-05] MEDS ORDERED: MAG HYDROX/AL HYDROX/SIMETH 30 ML UNIT-DOSE CUP ONE (11:44)
[2022-04-05 12:37] LABS: BASO % 0.2 % (0-2.0); HEMOGLOBIN 13.4 GM/dL (10.7-15.3); LYMPH % 25.5 % (8-40); MCHC 33.5 g/dl (32.0-36.0); MEAN CELL VOLUME 86.6 fl (80-96); MEAN PLT VOLUME 8.7 fl (7.5-11.1); MONO % 5.3 % (3.8-10.2); PLATELET COUNT 375 10^3/uL (134-434); RBC 4.62 M/mm3 (3.60-5.2); RDW 14.3 % (11.6-15.6); WHITE BLOOD COUNT 5.4 K/mm3 (4.0-10.0)
[2022-04-05 12:56] LABS: ALBUMIN 4.2 g/dl (3.4-5.0); CALCIUM 9.2 mg/dL (8.5-10.1)
[2022-04-05 13:00] LABS: CREATININE 0.9 mg/dL (0.55-1.3)
[2022-04-05 13:01] LABS: BILIRUBIN,TOTAL 0.3 mg/dL (0.2-1); TOT PROT 7.6 g/dl (6.4-8.2)
[2022-04-05] MEDS ORDERED: PANTOPRAZOLE SODIUM 40 MG VIAL IVPUSH ONE (15:00)
[2022-04-05] MEDS ORDERED: PANTOPRAZOLE SODIUM 40 MG VIAL ONE (15:45)
[2022-04-05 15:59] VITALS: BP 109/63; PULSE 80; RESP 18; TEMP 97.9
== END 2022-04-05 16:41 | disposition home or self-care (01) ==
LOC: JER 11:03
PROC: 3E033GC Introduction of Other Therapeutic Substance into Peripheral Vein, Percutaneous Approach (ICD-10-PCS; principal; 2022-04-05)
DX: K21.00 Gastro-esophageal reflux disease with esophagitis, without bleeding (principal)
CPT/HCPCS: 36415; 74177-TC; 80053; 83690; 85025; 99285-25

== ENCOUNTER 2022-05-07 19:10 | Emergency (ER) | payer OTHER ==
[2022-05-07 19:21] VITALS: BP 143/71; PULSE 81; RESP 20; TEMP 97.9; BMI 40.3
[2022-05-07] MEDS ORDERED: KETOROLAC TROMETHAMINE 30 MG/1 ML VIAL IM ONE (20:10)
[2022-05-07] MEDS ORDERED: ACETAMINOPHEN 500 MG TABLET (FP) ONE (20:10)
[2022-05-07] MEDS ORDERED: ACETAMINOPHEN 500 MG TABLET (FP) PO ONE (20:10)
[2022-05-07] MEDS ORDERED: KETOROLAC TROMETHAMINE 30 MG/1 ML VIAL ONE (20:10)
== END 2022-05-07 21:16 | disposition home or self-care (01) ==
LOC: JERFT 19:10 → JER 19:10 → JERFT 21:16
PROC: 3E0233Z Introduction of Anti-inflammatory into Muscle, Percutaneous Approach (ICD-10-PCS; principal; 2022-05-07)
DX: S93.491A Sprain of other ligament of right ankle, initial encounter (principal); W01.0XXA Fall on same level from slipping, tripping and stumbling without subsequent striking against object, initial encounter; X50.1XXA Overexertion from prolonged static or awkward postures, initial encounter; Y93.01 Activity, walking, marching and hiking; Y92.410 Unspecified street and highway as the place of occurrence of the external cause
CPT/HCPCS: 73610-TC-RT-FY; 99284-25

== ENCOUNTER 2022-09-01 21:33 | Emergency (ER) | payer OTHER ==
[2022-09-01 21:37] VITALS: BP 103/76; PULSE 76; RESP 18; TEMP 98.5; BMI 32.1
[2022-09-01] MEDS ORDERED: KETOROLAC TROMETHAMINE 30 MG/1 ML VIAL IM ONE (23:01)
[2022-09-01 23:34] LABS: BASO % 0.9 % (0-2.0); HEMATOCRIT 38.6 % (32.4-45.2); HEMOGLOBIN 12.7 GM/dL (10.7-15.3); LYMPH % 34.2 % (8-40); MCH 28.2 pg (25.7-33.7); MCHC 32.9 g/dl (32.0-36.0); MEAN CELL VOLUME 85.6 fl (80-96); MEAN PLT VOLUME 8.2 fl (7.5-11.1); MONO % 5.6 % (3.8-10.2); NEUT % 58.3 % (42.8-82.8); PLATELET COUNT 379 10^3/uL (134-434); RBC 4.51 M/mm3 (3.60-5.2); RDW 14.4 % (11.6-15.6); WHITE BLOOD COUNT 9.6 K/mm3 (4.0-10.0)
[2022-09-01 23:35] LABS: EPI CELLS >36 /uL (0-25.1); HYALINE CASTS 0 /uL (0-3.1); PH,URINE 6.5 (5.0-8.0); URINE APPEARANCE CLEAR; URINE BACTERIA 376 /uL (0-1359); URINE BILIRUBIN NEGATIVE (NEGATIVE); URINE COLOR YELLOW; URINE GLUCOSE (UA) NEGATIVE (NEGATIVE); URINE KETONE TRACE (NEGATIVE); URINE LEUK ESTERASE TRACE (NEGATIVE); URINE NITRITE NEGATIVE (NEGATIVE); URINE PROTEIN NEGATIVE (NEGATIVE); URINE RBC 10 /uL (0-23.9); URINE WBC 19 /uL (0-25.8)
[2022-09-01] MEDS ORDERED: KETOROLAC TROMETHAMINE 30 MG/1 ML VIAL ONE (23:41)
[2022-09-01 23:46] LABS: POTASSIUM 4.7 mmol/L (3.5-5.1)
[2022-09-01 23:49] LABS: ALBUMIN 3.6 g/dl (3.4-5.0); BLOOD UREA NITROGEN 14.5 mg/dL (7-18)
[2022-09-01 23:52] LABS: CREATININE 0.8 mg/dL (0.55-1.3)
[2022-09-01 23:53] LABS: BILIRUBIN,TOTAL 0.3 mg/dL (0.2-1)
[2022-09-02 00:01] LABS: HCG,QUALITATIVE URINE NEGATIVE
[2022-09-02 00:09] LABS: CALCIUM 9.5 mg/dL (8.5-10.1)
== END 2022-09-02 02:10 | disposition home or self-care (01) ==
LOC: JER 21:33
PROC: 3E0233Z Introduction of Anti-inflammatory into Muscle, Percutaneous Approach (ICD-10-PCS; principal; 2022-09-01)
DX: R10.31 Right lower quadrant pain (principal); M54.50 Low back pain, unspecified; M79.651 Pain in right thigh
CPT/HCPCS: 36415; 74177-TC; 80053; 81003; 83690; 84703; 85025; 87077; 87086; 99285-25; Q9967

== ENCOUNTER 2022-12-30 15:29 | Emergency (ER) | payer OTHER ==
[2022-12-30 16:51] VITALS: BP 109/62; PULSE 85; RESP 19; TEMP 98.6; BMI 29.0
[2022-12-30 17:11] LABS: URINE APPEARANCE CLEAR; URINE BILIRUBIN NEGATIVE (NEGATIVE); URINE COLOR YELLOW; URINE GLUCOSE (UA) NEGATIVE (NEGATIVE); URINE KETONE NEGATIVE (NEGATIVE); URINE LEUK ESTERASE NEGATIVE (NEGATIVE); URINE NITRITE NEGATIVE (NEGATIVE); URINE PROTEIN NEGATIVE (NEGATIVE); URINE UROBILINOGEN 0.2 mg/dL (0.2-1.0)
[2022-12-30] MEDS ORDERED: ACETAMINOPHEN 1000 MG/100 ML BAG IVPB ONE (18:36)
[2022-12-30] MEDS ORDERED: METOCLOPRAMIDE HCL INJECTION 10 MG/2 ML VIAL IVPUSH ONE (18:36)
[2022-12-30] MEDS ORDERED: ACETAMINOPHEN INJECTION 100 ML IVPB ONE (18:44)
[2022-12-30] MEDS ORDERED: METOCLOPRAMIDE HCL INJECTION 10 MG/2 ML VIAL ONE (18:44)
[2022-12-30 19:41] LABS: HEMATOCRIT 38.1 % (32.4-45.2); HEMOGLOBIN 12.6 GM/dL (10.7-15.3); MCH 28.2 pg (25.7-33.7); MCHC 33.1 g/dl (32.0-36.0); MEAN CELL VOLUME 85.3 fl (80-96); MEAN PLT VOLUME 8.5 fl (7.5-11.1); PLATELET COUNT 441 10^3/uL (134-434); RBC 4.46 M/mm3 (3.60-5.2); RDW 14.3 % (11.6-15.6); WHITE BLOOD COUNT 8.5 K/mm3 (4.0-10.0)
[2022-12-30 20:04] LABS: POTASSIUM 4.4 mmol/L (3.5-5.1)
[2022-12-30 20:06] LABS: ALBUMIN 4.1 g/dl (3.4-5.0); BLOOD UREA NITROGEN 20.9 mg/dL (7-18); CALCIUM 9.5 mg/dL (8.5-10.1)
[2022-12-30 20:09] LABS: CREATININE 0.8 mg/dL (0.55-1.3)
[2022-12-30 20:11] LABS: BILIRUBIN,TOTAL 0.2 mg/dL (0.2-1); TOT PROT 7.6 g/dl (6.4-8.2)
== END 2022-12-30 22:18 | disposition home or self-care (01) ==
LOC: JER 15:29 → JERFT 15:29
PROC: 3E033NZ Introduction of Analgesics, Hypnotics, Sedatives into Peripheral Vein, Percutaneous Approach (ICD-10-PCS; principal; 2022-12-30)
PROC: 3E033GC Introduction of Other Therapeutic Substance into Peripheral Vein, Percutaneous Approach (ICD-10-PCS; 2022-12-30)
DX: R10.31 Right lower quadrant pain (principal); N83.292 Other ovarian cyst, left side; N83.8 Other noninflammatory disorders of ovary, fallopian tube and broad ligament
CPT/HCPCS: 36415; 76830-TC; 80053; 81003; 84703; 85027; 87086; 87491; 87591; 99284-25

== ENCOUNTER 2023-03-20 08:37 | Inpatient (IN) | payer OTHER ==
[2023-03-20 08:46] VITALS: BMI 33.6
[2023-03-20] MEDS ORDERED: ONDANSETRON 4 MG/2 ML VIAL ONE (09:10)
[2023-03-20] MEDS ORDERED: KETOROLAC TROMETHAMINE 30 MG/1 ML VIAL ONE (09:10)
[2023-03-20] MEDS: KETOROLAC TROMETHAMINE 30 MG/1 ML VIAL IVPUSH ONE (09:25)
[2023-03-20] MEDS: ONDANSETRON 4 MG/2 ML VIAL IVPUSH ONE (09:30)
[2023-03-20 09:42] LABS: BASO % 0.6 % (0-2.0); EOS % 1.8 % (0-4.5); HEMATOCRIT 39.4 % (32.4-45.2); HEMOGLOBIN 12.7 GM/dL (10.7-15.3); LYMPH % 28.6 % (8-40); MCH 28.1 pg (25.7-33.7); MCHC 32.2 g/dl (32.0-36.0); MEAN CELL VOLUME 87.2 fl (80-96); MEAN PLT VOLUME 8.6 fl (7.5-11.1); PLATELET COUNT 373 10^3/uL (134-434); RBC 4.52 M/mm3 (3.60-5.2); RDW 14.6 % (11.6-15.6); WHITE BLOOD COUNT 8.4 K/mm3 (4.0-10.0)
[2023-03-20 10:01] LABS: ALBUMIN 3.6 g/dl (3.4-5.0); BLOOD UREA NITROGEN 14.4 mg/dL (7-18); CALCIUM 9.8 mg/dL (8.5-10.1)
[2023-03-20 10:04] LABS: CREATININE 0.6 mg/dL (0.55-1.3)
[2023-03-20 10:06] LABS: BILIRUBIN,TOTAL 0.3 mg/dL (0.2-1); TOT PROT 7.1 g/dl (6.4-8.2)
[2023-03-20 10:18] LABS: PH,URINE 6.5 (5.0-8.0); URINE APPEARANCE CLOUDY; URINE BILIRUBIN NEGATIVE (NEGATIVE); URINE COLOR YELLOW; URINE GLUCOSE (UA) NEGATIVE (NEGATIVE); URINE KETONE NEGATIVE (NEGATIVE); URINE LEUK ESTERASE NEGATIVE (NEGATIVE); URINE NITRITE NEGATIVE (NEGATIVE); URINE PROTEIN NEGATIVE (NEGATIVE); URINE UROBILINOGEN 0.2 mg/dL (0.2-1.0)
[2023-03-20] MEDS ORDERED: morphine SULFATE 4 MG/ML VIAL ONE ×2 (13:41→18:21)
[2023-03-20] MEDS: morphine CARPU-JECT 4 MG/1 ML DISP.SYRIN IVPUSH ONE ×2 (13:48→18:30)
[2023-03-20] MEDS: LACTATED RINGERS SOLUTION 1000 ML INFUS.BAG IV ONE (13:55)
[2023-03-20] MEDS: LIDOCAINE 5% TOPICAL PATCH TP ONE (18:14)
[2023-03-20] MEDS ORDERED: LIDOCAINE 4% PATCH TP ONE (18:22)
[2023-03-20] MEDS: LIDOCAINE 4% PATCH TP ONE (18:30)
[2023-03-20] MEDS: LIDOCAINE PATCH REMOVAL MC SCH (21:54)
[2023-03-20] MEDS ORDERED: TRIMETHOBENZAMIDE HCL 200MG/2ML INJ IM ONE (22:29)
[2023-03-20] MEDS ORDERED: ACETAMINOPHEN INJECTION 100 ML IVPB ONE (22:29)
[2023-03-20] MEDS: TRIMETHOBENZAMIDE HCL 200MG/2ML INJ IM PRN (23:19)
[2023-03-20] MEDS: ACETAMINOPHEN 1000 MG/100 ML BAG IVPB PRN (23:19)
[2023-03-20] MEDS: DEXTROSE 5%-NORMAL SALINE 1,000 ML IV SCH (23:20)
[2023-03-20] MEDS ORDERED: FAMOTIDINE 20 MG/50 ML IVPB 20 MG/50 ML MG IVPB ONE (23:29)
[2023-03-20] MEDS: FAMOTIDINE 20 MG/50 ML IVPB 20 MG/50 ML MG IVPB ONE (23:42)
[2023-03-21] MEDS ORDERED: ONDANSETRON 4 MG/2 ML VIAL IVPUSH PRN (00:28)
[2023-03-21] MEDS ORDERED: DEXTROSE 5%-0.45% SALINE 1,000 ML IV SCH (00:30)
[2023-03-21] MEDS ORDERED: ACETAMINOPHEN 1000 MG/100 ML BAG IVPB PRN (00:30)
[2023-03-21] MEDS ORDERED: CYCLOBENZAPRINE HCL 5 MG TABLET ONE (05:15)
[2023-03-21] MEDS: CYCLOBENZAPRINE HCL 10 MG TABLET (FP) PO SCH (05:41)
[2023-03-21] MEDS ORDERED: PANTOPRAZOLE 40 MG TABLET PO ONE (09:15)
[2023-03-21] MEDS ORDERED: FERROUS SO4 325 MG TABLET (FP) ONE (09:15)
[2023-03-21] MEDS ORDERED: LIDOCAINE 4% PATCH TP ONE (09:16)
[2023-03-21] MEDS: FERROUS SO4 325 MG TABLET (FP) PO SCH (09:17)
[2023-03-21] MEDS: PANTOPRAZOLE 40 MG TABLET PO SCH (09:17)
[2023-03-21] MEDS: LIDOCAINE 5% TOPICAL PATCH TP SCH (10:52)
[2023-03-21] MEDS: CYCLOBENZAPRINE HCL 5 MG TABLET PO SCH (16:37)
[2023-03-21] MEDS: LIDOCAINE PATCH REMOVAL MC SCH (23:20)
[2023-03-22 16:16] VITALS: PULSE 87; RESP 20
[2023-03-22 16:37] VITALS: BP 122/79; TEMP 97.7
== END 2023-03-22 15:05 | disposition home or self-care (01) | DRG 347 ==
LOC: JER 08:37 → JERBED 16:33 → OBSVTOIN 03-21 00:27 → J8W 03-21 14:45
PROVIDERS: ADMIT Internal Medicine; ATTEND Internal Medicine
DX: M54.9 Dorsalgia, unspecified (principal); K21.9 Gastro-esophageal reflux disease without esophagitis; K44.9 Diaphragmatic hernia without obstruction or gangrene
CPT/HCPCS: 0241U-QW; 36415; 74177-TC; 76830-TC; 80053; 81003; 84703; 85025; 87086; 97116-GP; 97161-GP; 99285-25; G0378; J0131; Q9967

== ENCOUNTER 2023-06-19 11:30 | Emergency (ER) | payer OTHER ==
[2023-06-19 11:35] VITALS: BP 107/68; PULSE 89; RESP 20; TEMP 98.1; BMI 39.8
== END 2023-06-19 12:52 | disposition home or self-care (01) ==
LOC: JER 11:30
PROC: 0X950ZZ Drainage of Left Axilla, Open Approach (ICD-10-PCS; principal; 2023-06-19)
DX: L02.412 Cutaneous abscess of left axilla (principal); R50.9 Fever, unspecified
CPT/HCPCS: 99283-25

== ENCOUNTER 2024-01-13 13:30 | Emergency (ER) | payer OTHER ==
[2024-01-13 13:45] VITALS: BP 99/68; PULSE 86; RESP 20; TEMP 98.7; BMI 41.9
[2024-01-13] MEDS ORDERED: LIDOCAINE 4% PATCH TP ONE (14:41)
[2024-01-13] MEDS ORDERED: KETOROLAC TROMETHAMINE 30 MG/1 ML VIAL ONE (14:41)
[2024-01-13] MEDS ORDERED: diazePAM 5 MG TABLET ONE (14:41)
[2024-01-13] MEDS: LIDOCAINE 5% TOPICAL PATCH TP ONE (14:46)
[2024-01-13] MEDS: diazePAM 5 MG TABLET PO ONE (14:46)
[2024-01-13] MEDS: KETOROLAC TROMETHAMINE 30 MG/1 ML VIAL IM ONE (14:46)
[2024-01-13] MEDS ORDERED: LIDOCAINE PATCH REMOVAL MC ONE (22:00)
== END 2024-01-13 16:01 | disposition home or self-care (01) ==
LOC: JER 13:30
PROC: 3E0133Z Introduction of Anti-inflammatory into Subcutaneous Tissue, Percutaneous Approach (ICD-10-PCS; principal; 2024-01-13)
DX: M54.16 Radiculopathy, lumbar region (principal); M54.50 Low back pain, unspecified
CPT/HCPCS: 96372; 99284-25